=== PATIENT | male | born 1985 ===

== ENCOUNTER 2017-01-08 20:32 | Emergency (ER) | payer MEDICARE, MEDICAID ==
[2017-01-08 20:44] VITALS: BP 126/68
[2017-01-08] MEDS ORDERED: Ibuprofen TAB* 400 MG PO ONE (21:02)
--- NOTE | 2017-01-08 21:38 | RAD ---
HISTORY: Pain after fall, left ankle and left foot COMPARISONS: None VIEWS: 6, Frontal, lateral, and oblique views of the left ankle and of the left foot FINDINGS: BONE DENSITY: Normal. BONES: There is a bone fragment dorsal aspect of the medial cuneiform. There are calcaneal enthesophytes. There is a well-corticated bone fragment along the dorsal aspect of the talonavicular articulation suggestive of an accessory ossicle. JOINTS: There is no arthropathy. ALIGNMENT: There is no dislocation. SOFT TISSUES: Unremarkable. OTHER FINDINGS: None. IMPRESSION: 1. SMALL BONE FRAGMENT ALONG THE DORSAL ASPECT OF THE MEDIAL CUNEIFORM WHICH MAY REFLECT AN AVULSION INJURY GIVEN HISTORY OF TRAUMA AND DORSAL FOOT PAIN. 2. NO ACUTE OSSEOUS INJURY TO THE ANKLE.
--- NOTE | 2017-01-08 21:57 | UC ---
Lower Extremity/Ankle HPI - HPI Summary HPI Summary: patient had a weight drop on the instep of the foot. pain in the arch and lateral side of foot. - History of Current Complaint Chief Complaint: UCLowerExtremity Stated Complaint: LEFT FOOT Time Seen by Provider: 01/08/17 21:14 Hx Obtained From: Patient Onset/Duration: Sudden Onset, Lasting Hours Severity Initially: Moderate Severity Currently: Moderate Aggravating Factor(s): Standing, Ambulation, Nothing Alleviating Factor(s): Rest Able to Bear Weight: Yes - Risk Factors Gout Risk Factors: Negative DVT Risk Factors: Negative - Allergies/Home Medications Allergies/Adverse Reactions: Allergies Allergy/AdvReac Type Severity Reaction Status Date / Time Sulfa Drugs Allergy Unknown Unknown Verified 01/08/17 20:44 Reaction Details Home Medications: Home Medications Gabapentin CAP(*) [Neurontin 100 mg CAP(*)] 100 mg PO TID 01/08/17 [History Confirmed 01/08/17] Pantoprazole Sodium [Protonix] 20 mg PO DAILY 01/08/17 [History Confirmed ] QUEtiapine TAB* [SEROquel TAB*] 50 mg PO BID 01/08/17 [History Confirmed ] metFORMIN* [Glucophage 500 MG TAB *] 500 mg PO BID 01/08/17 [History Confirmed 01/08/17] PMH/Surg Hx/FS Hx/Imm Hx Previously Healthy: Yes - Surgical History Surgical History: Yes Surgery Procedure, Year, and Place: T&A, R carpal tunnel - Family History Known Family History: Negative: Cardiac Disease, Hypertension - Social History Alcohol Use: Occasionally Substance Use Type: None Smoking Status (MU): Light Every Day Tobacco Smoker Type: Cigarettes Amount Used/How Often: 1/3 PPD Length of Time of Smoking/Using Tobacco: 13 YEARS Have You Smoked in the Last Year: Yes Review of Systems Constitutional: Negative Skin: Negative Eyes: Negative ENT: Negative Respiratory: Negative Cardiovascular: Negative Gastrointestinal: Abdominal Pain Genitourinary: Negative Motor: Negative Musculoskeletal: Arthralgia, Decreased ROM, Edema, Myalgia Neurological: Negative Psychological: Negative All Other Systems Reviewed And Are Negative: Yes Physical Exam Triage Information Reviewed: Yes Appearance: Well-Appearing, Well-Nourished, Pain Distress Vital Signs: Initial Vital Signs Temp 98.8 F 01/08/17 20:40 Pulse 82 01/08/17 20:40 Resp 16 01/08/17 20:40 BP 126/68 01/08/17 20:40 Pulse Ox 98 01/08/17 20:40 Vital Signs Reviewed: Yes Eye Exam: Normal Eyes: Positive: Conjunctiva Clear ENT Exam: Normal Dental Exam: Normal Neck exam: Normal Respiratory Exam: Normal Cardiovascular Exam: Normal Abdominal Exam: Normal Bowel Sounds: Positive: Present Musculoskeletal: Positive: ROM Limited @ - in ankle flx, ext and inversion and eversion, swelling over the midfoot Neurological Exam: Normal Neurological: Positive: Alert, Muscle Tone Normal Psychological Exam: Normal Skin Exam: Normal Lower Extremity Course/Dx - Course Course Of Treatment: hx obtained, exam performed ,meds reviewed, cam boot and crutches and oracio applied, referred to Dr clark for follow up. - Differential Dx/Diagnosis Differential Diagnosis/HQI/PQRI: Contusion, Dislocation, Fracture (Closed), Infection, Puncture Wound, Sprain, Strain Provider Diagnoses: contusion. avulsion fracture in left foot Discharge - Discharge Plan Condition: Stable Disposition: HOME Patient Education Materials: Foot Fracture in Adults (ED) Referrals: Alyce Capellan MD [Primary Care Provider] - Additional Instructions: 1. stay non weight bearing until you get cleared from ortho. 2. continue with ibuprofen and tylenol for pain 3. keep foot elevated and use the oracio wrap for swelling reduction
== END 2017-01-08 22:24 | disposition home or self-care (01) ==
LOC: UCCORT 20:32
DX: S92.242A Displaced fracture of medial cuneiform of left foot, initial encounter for closed fracture (principal); W22.8XXA Striking against or struck by other objects, initial encounter; Y93.79 Activity, other specified sports and athletics; Y92.9 Unspecified place or not applicable; Y99.9 Unspecified external cause status; Z72.0 Tobacco use
CPT/HCPCS: 99203; A9270-GY; G0463

== ENCOUNTER 2019-04-16 17:52 | Emergency (ER) | payer MEDICARE, MEDICAID ==
--- OUTSIDE RECORDS SUMMARY | 2019-04-16 19:10 | XMS REPORT | Continuity of Care Document ---
:1985 External Reference #:[id number] Author Name Geeta Mercer NP Address [address], [address] [place] [address] Care Team Providers Name Role Phone Alyce Capellan MD - Family Medicine Care Team Information Earth Moving Machine Operator [facility], Endocrinology - Care Team Information [employer] Moving [employer] Operator [phone] Endocrinology, Diabetes & Metabolism Jese Larryph - Pain Medicine Care Team Information [employer] Moving Machine Operator [phone] Heartburn [facility] Care Team Information [employer] Moving [employer] Operator Health Problems Active Problems Provider Date Multiple joint pain Alyce Capellan MD Onset: 12/04/2011 Backache Alyce Capellan MD Onset: 12/04/2011 Neck pain Alyce Capellan MD Onset: 12/04/2011 Musculoskeletal disorder of the neck Alyce Capellan MD Onset: 2011 Social History Type Date Description Comments Sex Unknown Tobacco Use Reviewed: 09/06/16 currently smokes 1/2 Pack Daily ETOH Use Denies alcohol use Tobacco Use Reviewed: 09/26/18 Light tobacco smoker (10 or fewer cigarettes/day) Smoking Status Reviewed: 02/13/19 Light tobacco smoker (10 or fewer cigarettes/day) Allergies, Adverse Reactions, Alerts Active Allergies Reaction Severity Comments Date Sulfa Drugs 12/04/2011 Medications Active Medications SIG Qnty Indications Ordering Date Provider Albuterol Sulfate HFA Inhale Two Puffs 18units Alyce Capellan 2018 By Mouth Every 4 M., 108(90Base) mcg/Act Hours as Needed Aerosol Metformin HCL ER take two tablets 120tabs Marilia Digant 04/03/2019 500mg by mouth twice a M., Tablets ER 24HR day Gabapentin take 1 tablet by 90tabs Marilia Digant 04/03/2019 600mg mouth three M., Tablets times a day Metaxalone take 1 tablet by 90tabs Marilia, Digant 03/23/2019 800mg mouth three M., Tablets times daily as needed Onetouch Finepoint use as directed 300units Marilia Digant 12/17/2018 Lancets e11.65 four M., Misc times daily Onetouch Ultra 2 use as directed 1units Marilia Digant 12/17/2018 four times daily M.MD w/Device Kit Onetouch Ultra Blue use as directed 300units E11.8 Keron Digant 2018 four times daily M.MD Strips BD Uf Silva Pen Needle Use as Directed 100units Marilia Digeve 2018 [id number] With Insulin M.MD Lisinopril 1 by mouth every 90tabs Marilia Digant 09/26/2018 10mg Tablets day M., Pantoprazole Sodium take one tablet 30tabs Marilia Digant 05/11/2018 by mouth every M., 40mg Tablets DR day Basaglar Kwikpen inject 60 units 45units Marilia Digant 03/26/2018 nightly. MMD Prasad 100Unit/ML Solution Pen-Inject Novolog Flexpen use as directed 30units Marilia Digant 03/26/2018 as per sliding M.MD 100Unit/ML Solution scale maximum Pen-Inject daily dose = 30 Alcohol Prep use as directed 300units Marilia Digant 03/07/2018 70% Pads to test blood M.MD sugar twice a day and prn. Simvastatin take one tablet 30tabs E78.5 Sydneeavasharri Digant 03/05/2018 40mg by mouth every M., Tablets day Quetiapine Fumarate take one tablet 60tabs F33.0 Sydneeavasharri Digant 2017 by mouth twice a M., 50mg Tablets day Sertraline HCL take one tablet 30tabs Nanavasharri, Digant 03/05/2018 100mg by mouth every M., Tablets day History Medications Mupirocin apply to affected 22gm Alyce Capellan 02/13/2019 - 2% area twice a day MD Rosa 04/03/2019 Ointment Ammonium Lactate apply topically 1 280gm Alyce Capellan 02/13/2019 - to 2 times a day to MD Rosa 04/03/2019 12% Cream the affected area(s) for 2 weeks Immunizations CPT Code Status Date Vaccine Lot # [id number] Given 06/27/2018 Influenza Virus [id number] Vaccine,Quadrivalent,Split,Preserv Free, 0.5mL,[place] [id number] Given 10/17/2015 Tdap (Adacel) Ages 7 And Above Only [id number] Refused 01/07/2019 Pneumococcal 23 Immunization Adult Or Immunosuppressed Patient [id number] Refused 01/14/2017 Flu Vaccine NOS [id number] Refused 11/17/2015 Influenza Vac, Quadrivalent, Split, 0.5mL Dosage, [place] Use [id number] Refused 10/20/2013 Afluria Or Fluvirin Flu Vac Intramuscular Vital Signs Date Vital Result Comment 04/03/2019 2:40pm Body Temperature 97.5 F Weight 276.00 lb Heart Rate 104 /min Respiratory Rate 18 /min Height 67 inches 5'7" O2 % BldC Oximetry 94 % BMI (Body Mass Index) 43.2 kg/m2 02/13/2019 3:02pm Body Temperature 97.2 F Weight 276.00 lb Heart Rate 70 /min BP Systolic 126 mmHg BP Diastolic 70 mmHg Respiratory Rate 16 /min Height 67 inches 5'7" O2 % BldC Oximetry 98 % BMI (Body Mass Index) 43.2 kg/m2 Results Test Date Facility Test Result H/L Range Note CBC with Auto Diff-fcmg 01/27/2019 [facility] WBC 10.0 K/uL 4.1-11.0 1 RBC 5.02 M/uL 4.60-6.10 Hemoglobin 15.6 gm/dL 13.5-18.0 Hematocrit 45.8 % 41.0-53.0 MCV 91.3 fL 80.0-97.0 MCH 31.2 pg 27.0-32.0 MCHC 34.2 g/dL 32.0-36.0 RDW 13.4 % 11.5-14.5 PLT Count 228 K/ul 140-400 MPV 8.6 FL 7.1-10.7 Neutrophil 54.5 % 35.0-75.0 Lymphocyte 33.4 % 16.0-52.0 Monocyte 6.1 % 2.0-10.0 Eosinophil 5.1 % High 0.0-5.0 Basophil 0.9 % 0.0-4.0 Abs Neutrophils 5.4 K/uL 2.1-8.0 Abs Lymphocytes 3.3 K/uL 0.8-5.5 Abs Monocytes 0.6 K/uL 0.1-1.0 Abs Eosinophils 0.5 K/uL 0.0-0.5 Abs Basophils 0.1 K/uL 0.0-0.3 Comprehensive Met Panel-[facility] 01/27/2019 [facility] Sodium 137 mmol/L 135- 146 2 Potassium 3.9 mmol/L 3.5-5.2 Chloride# 101 mmol/L 97-110 3 Carbon Dioxide 21 mmol/L Low 24-34 Calcium 9.7 mg/dL 8.5-10.5 4 Glucose 156 mg/dL High 70-105 BUN 16 mg/dL 6-26 Creatinine 0.9 mg/dL 0.5-1.4 Total Protein 7.1 g/dL 6.0-8.0 Albumin 4.7 g/dL 3.6-4.9 Globulin 2.4 g/dL 2.0-3.5 A/G Ratio 2.0 Ratio 1.0-2.2 Total Bilirubin 0.4 mg/dL 0.1-1.3 Alkaline Phosphatase 88 U/L 24-140 Alt 50 U/L High 3-42 Ast 28 U/L 8-42 Anion Gap 15 mmol/L 5-15 5 Female Egfr 86 >60 6 Male Egfr 111 >60 7 Lipid 01/27/2019 [facility] Cholesterol 180 mg/dL 50-199 Triglycerides 488 mg/dL High 30-200 HDL 31 mg/dL 29-71 8 Chol/ HDL Ratio 5.8 ratio 4.0-6.7 Laboratory test 01/27/2019 [facility] TSH 2.23 uIU/mL 0.35-4.94 finding Hemoglobin A1c 01/27/2019 [facility] Hemoglobin A1c 8.5 % High 4.1-5.9 Estimated Average Glucose Calc 197 mg/dL High 71-140 Laboratory test finding 01/27/2019 [facility] Vitamin B12 288 pg/mL 180- 914 Vitamin D 25 Hydroxy 22 ng/mL Low 30-100 9 Laboratory test finding 01/27/2019 [facility] LDL 89 mg/dL 20-99 10 1 This sample is drawn by:wilman 2 Updated reference range on new analyzer 3 Updated reference range on new analyzer 4 Updated reference range 11-26-2018 5 Updated Reference Range 6 Concerning GFR Guidelines for Americans: Normal function or mild renal disease, if clinically at risk: >/= 60 mL/min Moderately decreased: 30-59 Severely decreased: 15-29 Renal failure: <15 There is reduced accuracy above 60ml/min/1.73 m squared, but the numeric value may be clinically useful in the near 60 range 7 Concerning GFR Guidelines: Normal function or mild renal disease, if clinically at risk: >/= 60 mL/min Moderately decreased: 30-59 Severely decreased: 15-29 Renal failure: <15 There is reduced accuracy above 60ml/min/1.73 m squared, but the numeric value may be clinically useful in the near 60 range Glomerular Filtration Rate (GFR) is estimated based on the CKD-EPI equation, which assumes a steady state for creatinine as recommended by the National Kidney Disease Education Program in conjunction with the National Institutes of Health and the National Kidney Foundation. Clinical conditions in which it may be necessary to measure GFR by using clearance methods include extremes of age and body size, severe malnutrition or obesity, diseases of skeletal muscle, paraplegia or quadriplegia, vegetarian diet, rapidly changing kidney function, and calculation of the dose of potentially toxic drugs that are excreted by the kidneys. 8 Per NCEP ATP III Guidelines: Results lower than 40 mg/dL are suggestive of increased risk for coronary artery disease. Results > or = to 60 mg/dL are considered a negative risk factor. 9 Clinical Guidelines for recommended serum 25(OH)Vitamin D Deficient at less than 20 ng/mL Insufficient at 20 to <30 ng/mL Sufficient at 30-100 ng/mL Toxicity at greater than 100 ng/mL 10 Per NCEP ATP III Guidelines: Normal population: <130 Patients with medical conditions: CHD/DM Optimal range: <100 Borderline high: 130-159 High: 160-189 Very high: >189 Procedures Date Code Description Status 04/03/2019 95327 Brief Emotional/Behav Assessment W/ Scoring Doc Per Completed [facility] Medical Devices Description No Information Available Encounters Type Date Location Provider Dx Diagnosis Office Visit 02/13/2019 [facility] Alyce Capellan E11.40 Type 2 diabetes 3:15p Ruby Lee MD mellitus with diabetic neuropathy, unsp I10 Essential (primary) hypertension E78.5 Hyperlipidemia, unspecified F33.0 Major depressive disorder, recurrent, mild F41.1 Generalized anxiety disorder G47.00 Insomnia, unspecified K21.9 Gastro-esophageal reflux disease without esophagitis M54.9 Dorsalgia, unspecified M54.2 Cervicalgia D35.2 Benign neoplasm of pituitary gland F17.218 Nicotine dependence, cigarettes, w oth disorders E55.9 Vitamin D deficiency, unspecified E66.01 Morbid (severe) obesity due to excess calories Z68.41 Body mass index (BMI) 40.0-44.9, adult Office Visit 01/07/2019 [facility] Cheryl, E11.40 Type 2 diabetes 2:00p YAIMA Olivo mellitus with diabetic neuropathy, unsp I10 Essential (primary) hypertension E78.5 Hyperlipidemia, unspecified F33.0 Major depressive disorder, recurrent, mild F41.1 Generalized anxiety disorder G47.00 Insomnia, unspecified K21.9 Gastro-esophageal reflux disease without esophagitis M54.9 Dorsalgia, unspecified E66.01 Morbid (severe) obesity due to excess calories Z68.41 Body mass index (BMI) 40.0-44.9, adult Assessments Date Code Description Provider 04/03/2019 E66.01 Morbid (severe) obesity due to excess Depaulis Fiumano, calories Geeta, VICE PRESIDENT OF INSTRUCTION 04/03/2019 E11.40 Type 2 diabetes mellitus with diabetic Depaulis Fiumano, neuropathy, unspecifi Geeta, VICE PRESIDENT [employer]STRUCTION 04/03/2019 I10 Essential (primary) hypertension Depaulis Fiumano, Geeta, VICE PRESIDENT [employer]STRUCTION 04/03/2019 E78.5 Hyperlipidemia, unspecified Depaulis Fiumano, Geeta, VICE PRESIDENT [employer]STRUCTION 04/03/2019 F33.0 Major depressive disorder, recurrent, Depaulis Fiumano, mild Geeta, VICE PRESIDENT OF INSTRUCTION 04/03/2019 F41.1 Generalized anxiety disorder Depaulis Fiumano, Geeta, VICE PRESIDENT OF INSTRUCTION 04/03/2019 G47.00 Insomnia, unspecified Depaulis Fiumano, Geeta, BULMARO 04/03/2019 Z68.41 Body mass index (BMI) 40.0-44.9, adult Geeta Mercer, BULMARO 02/13/2019 E11.40 Type 2 diabetes mellitus with diabetic Alyce Capellan MD neuropathy, unspecifi 02/13/2019 I10 Essential (primary) hypertension Alyce Capellan MD 02/13/2019 E78.5 Hyperlipidemia, unspecified Alyce Capellan MD 02/13/2019 F33.0 Major depressive disorder, recurrent, Alyce Capellan MD mild 02/13/2019 F41.1 Generalized anxiety disorder Alyce Capellan MD 02/13/2019 G47.00 Insomnia, unspecified Alyce Capellan MD 02/13/2019 K21.9 Gastro-esophageal reflux disease Alyce Capellan MD without esophagitis 02/13/2019 M54.9 Dorsalgia, unspecified Alyce Capellan MD 02/13/2019 M54.2 Cervicalgia Alyce Capellan MD 02/13/2019 D35.2 Benign neoplasm of pituitary gland Alyce Capellan MD 02/13/2019 F17.218 Nicotine dependence, cigarettes, with Alyce Capellan MD other nicotine-induced 02/13/2019 E55.9 Vitamin D deficiency, unspecified Alyce Capellan MD 02/13/2019 E66.01 Morbid (severe) obesity due to excess Alyce Capellan MD calories 02/13/2019 Z68.41 Body mass index (BMI) 40.0-44.9, adult Alyce Capellan MD 01/27/2019 E11.40 Type 2 diabetes mellitus with diabetic Alyce Capellan MD neuropathy, unspecified 01/27/2019 E11.40 Type 2 diabetes mellitus with diabetic Loc V1 Nurse Blood neuropathy, unsp 01/27/2019 E55.9 Vitamin D deficiency, unspecified Alyce Capellan MD 01/27/2019 E55.9 Vitamin D deficiency, unspecified Loc V1 Nurse Blood 01/27/2019 E78.5 Hyperlipidemia, unspecified Alyce Capellan MD 01/27/2019 E78.5 Hyperlipidemia, unspecified Loc V1 Nurse Blood 01/27/2019 E78.1 Pure hyperglyceridemia [facility] 01/27/2019 E11.40 Type 2 diabetes mellitus with diabetic [facility] neuropathy, unsp 01/27/2019 E55.9 Vitamin D deficiency, unspecified [facility] 01/27/2019 E78.5 Hyperlipidemia, unspecified [facility] 01/07/2019 E11.40 Type 2 diabetes mellitus with diabetic Farchione, Tianna , PA neuropathy, unspecifi 01/07/2019 I10 Essential (primary) hypertension Farchione, Tianna, PA 01/07/2019 E78.5 Hyperlipidemia, unspecified Farchione, Tianna, PA 01/07/2019 F33.0 Major depressive disorder, recurrent, Farchione, Tianna, PA mild 01/07/2019 F41.1 Generalized anxiety disorder Farchione, Tianna, PA 01/07/2019 G47.00 Insomnia, unspecified Farchione, Tianna, PA 01/07/2019 K21.9 Gastro-esophageal reflux disease Farchione, Tianna, PA without esophagitis 01/07/2019 M54.9 Dorsalgia, unspecified Farchione, Tianna, PA 01/07/2019 E66.01 Morbid (severe) obesity due to excess Farchione, Tianna , PA calories 01/07/2019 Z68.41 Body mass index (BMI) 40.0-44.9, adult Cheryl, Tianna , PA Plan of Treatment Future Appointment(s):05/08/2019 3:00 pm - Geeta Mercer NP at [facility] [place][Note 2]04/03/2019 - Geeta Mercer NPE66.01 Morbid (severe) obesity due to excess caloriesComments:5A's for Obesity Counseling1. ASSESS: Patient presents with a BMI of 43.2, would like to discuss weight loss options.2. ADVISE: Discussed fdc complications of obesity in particular increased riskfor worsening and uncontrolled diabetes and heart disease as well as the many health benefits that come with a healthy BMI.3. AGREE: Goal is 1 pound or better per week weight loss. The patient understands and agrees to the plan outlined today.4. ASSIST: Reduce caloric intake, reduce proportion of carbohydrates in diet, establish daily exercise pattern, keep food log.5. ARRANGE: Follow up scheduled in ___one month_ to assess and adjust treatment plan if needed.Time spent counseling the patient on obesity is 15 minutes. Obesity Screening Completed (G0447)E11.40 Type 2 diabetes mellitus with diabetic neuropathy, unspecifiComments:improving and discussed diet changes to better improve. has not been taking metformin and changed to extended release. will monitor. having peripheral neuropathy adn increase gabapentin. needs to go to podiatry dn will refer. needs to have better supporting shoes diabetic socks.Referral:Jose Reddy, [id number] Essential (primary) hypertensionComments:BP controlled with meds. Continue to monitor BP. Low salt diet. No changes made.E78.5 Hyperlipidemia, unspecifiedComments:on meds and diet and exercise encouraged. Will check levels. 5A's for Cardiovascular Disease Counseling 1. ASSESS: Patient has E78.5 Hyperlipidemia, unspecified2. ADVISE: Discussed the importance of regular exercise, DASH diet, stress reduction, avoidance of NSAIDS and low cholesterol diet. Counseled on statin therapy. 3. AGREE: Patient agrees to implement the modifications discussed today.4. ASSIST: Patient was offered nutritional therapy and provided information on the risks of cardiovascular disease.5. ARRANGE: We will follow-up at next visit to see how the patient has implemented the above changes.Time spent counseling the patient on CVD is 8 minutes 10 minutes 15 minutes CVD Screening Completed (G0446)F33.0 Major depressive disorder, recurrent, mildComments:*controlled with meds. NO changes made. Encouraged counseling. Pt counseled not to stop meds and to take med consistently daily.F41.1 Generalized anxiety disorderComments:*controlled with meds. NO changes made. Encouraged counseling. Pt counseled not to stop meds and to take med consistently daily.G47.00 Insomnia, unspecifiedComments:continue with seroquel.Z68.41 Body mass index (BMI) 40.0-44.9, adultComments:diet and exercise and weight loss encouraged.AllNew Medication:Albuterol Sulfate HFA 108( 90 Base) mcg/Act - Inhale Two Puffs By Mouth Every 4 Hours as NeededMetformin HCL ER 500 mg - take two tablets by mouth twice a dayGabapentin 600 mg - take 1 tablet by mouth three times a dayFollow up:1 month follow up Functional Status Description No Information Available Mental Status Description No Information Available Referrals Refer to Reason for Referral Status Appt Date Jose eRddy Siddharth [address] [id number] [phone] Mony Ansari PA sleep study evaluation Scheduled 11/12/2018 [id number] [id number] [phone]
--- OUTSIDE RECORDS SUMMARY | 2019-04-16 19:11 | XMS REPORT | Continuity of Care Document ---
:1985 External Reference #:[id number] Author Name Alyce Capellan MD Address [address] [address] Care Team Providers Name Role Phone Alyce Capellan MD Primary Care Physician Unavailable Payers Date Identification Numbers Payment Provider Subscriber Effective: 2013 Policy Number: [id number] Medicare Part B Vadim Bui Group Name: [facility] [address] PayID: [id number] [place] [address] Policy Number: [id number] Medicaid Vadim Bui PayID: [id number] [address] [place] [address] Onset: 2008 Policy Number: [id number] Hari Beth Vadim Bui PayID: [id number] [address] [address] [place] [address] Problems Active Problems Provider Date Multiple joint pain Alyce Capellan MD Onset: 12/04/2011 Backache Alyce Capellan MD Onset: 12/04/2011 Neck pain Alyce aCpellan MD Onset: 12/04/2011 Musculoskeletal disorder of the neck Alyce Capellan MD Onset: 2011 Family History Date Family Member(s) Observation Comments Father Hypercholesterolemia Father COPD Father Arthritis Mother GERD Social History Type Date Description Comments Sex [...] Medications SIG Qnty Indications Ordering Date Provider Mupirocin apply to affected 22gm Alyce Capellan 02/13/2019 2% Ointment area twice a day MMD Prasad Ammonium Lactate apply topically 1 280gm Marilia Digeve 02/13/2019 12% to 2 times a day MMD Prasad Cream to the affected area(s) for 2 weeks Onetouch Finepoint use as directed 300units Marilia Digant 12/17/2018 Lancets e11.65 four times M., Misc daily Onetouch Ultra 2 use as directed 1units Marilia Digant 12/17/2018 four times daily M.MD w/Device Kit Onetouch Ultra Blue use as directed 300units E11.8 Keronsharri Digeve 2018 four times daily M.MD Strips BD Uf Silva Pen Use as Directed 100units Sydneejuan Juanieve 11/02/2018 Needle [id number] With Insulin MMD Prasad Lisinopril 1 by mouth every 90tabs Nanavasharri Digant 09/26/2018 10mg day M.MD Tablets Pantoprazole Sodium Take One Tablet 30tabs Sydneejuan Digant 05/11/2018 By Mouth Every M., 40mg Tablets DR Day Ventolin HFA Inhale Two Puffs 18units Sydneejuan Digant 05/09/2018 By Mouth Every 4 M., 108(90Base) mcg/Act Hours as Needed Aerosol Basaglar Kwikpen 65 units nightly 45ml Nanjuan Digant 03/26/2018 MMD Prasad 100Unit/ML Solution Pen-Inject Novolog Flexpen Use as Directed 30units Sydneejuan Digant 03/26/2018 as Per Sliding M.MD 100Unit/ML Solution Scale Maximum Pen-Inject Daily Dose = 30 Alcohol Prep use as directed 300units Sydneeavasharri Digant 03/07/2018 70% Pads to test blood MMD Prasad sugar twice a day and prn. Sertraline HCL take one tablet 30tabs Nanavati Digant 03/05/2018 100mg by mouth every M., Tablets day Quetiapine Fumarate Take One Tablet 60tabs F33.0 Nanavati, Digant 2017 By Mouth Twice A M.MD 50mg Tablets Day Simvastatin take one tablet 30tabs E78.5 Sydneeavati, Digant 03/05/2018 40mg by mouth every M., Tablets day Metformin HCL take one tablet 180tabs Nanavati, Digant 03/05/2018 1000mg by mouth twice a MMD Prasad Tablets day Gabapentin take one capsule 90caps Marilia, Juaniant 01/14/2017 300mg by mouth three M.MD Capsules times a day History Medications Metaxalone take 1 tablet 90tabs Marilia, 09/26/2018 - 800mg Tablets by mouth three Alyce Lee MD 01/12/2019 times daily as needed Hydrochlorothiazide Take One Tablet 30tabs Marilia, 09/24/2018 - 25mg By Mouth Every Alyce Lee MD 09/26/2018 Tablets Day Methylprednisolone use as directed 21unmadyson Capellan, 08/21/2018 - 4mg TBPK Alyce Lee MD 09/26/2018 Triamcinolone Acetonide apply sparingly 45gm Marilia, 08/21/2018 - 0.025% to affected Alyce Lee MD 09/26/2018 Cream area twice a day for twos only Lisinopril 1 by mouth 90tabs Marilia, 07/08/2018 - 5mg Tablets every day Alyce Lee MD 09/26/2018 Pantoprazole Sodium Take One Tablet 30tabs K21.0 Marilia, 05/11/2018 - 40mg By Mouth Every Alyce eLe MD 07/08/[address] Day Cephalexin 1 by mouth 30caps Marilia, 05/09/2018 - 500mg Capsules three times a Alyce Lee MD 07/08/2018 day Pen [place] use as directed 100unmadyson Capellan, 04/23/2018 - 32G X 4 mm Misc with insulin Alyce Lee MD 12/17/2018 Potassium Chloride [place] 1 by mouth 90tachristian Capellan, 03/05/2018 - ER every day Alyce Lee MD 07/08/2018 20Meq Tablets ER Hydrochlorothiazide Take One Tablet 30tabs Marilia, 03/05/2018 - 25mg By Mouth Every Alyce Lee MD 07/08/2018 Tablets Day Lantus Solostar inject 35 units 45ml Marilia, 03/04/2018 - 100Unit/ML under the skin Alyce Lee MD 03/26/2018 Solution Pen-Inject at bedtime Amoxicillin one cap by 30omnica Capellan, 11/22/2017 - 500mg Capsules mouth three Alyce Lee MD 03/04/2018 times a day for ten days Potassium Chloride ER Take One Tablet 30tabs Marilia, 06/27/2017 - 10Meq By Mouth Every Alyce Lee MD 03/04/2018 Tablets ER Day Sertraline HCL Take One Tablet 30tabs Marilia, 03/18/2017 - 100mg Tablets By Mouth Every Alyce Lee MD 03/04/2018 Day Gabapentin 1 by mouth 90caps Marilia, 11/12/2016 - 100mg Capsules three times a Alyce Lee MD 01/14/2017 day Klor-Con 10 Take One Tablet 30tabs Marilia, 10/18/2016 - 10Meq Tablets ER By Mouth Every Alyce Lee MD 06/27/2017 Day Quetiapine Fumarate Take One Tablet 60tabs F33.0 Marilia, 10/12/2016 - 50mg By Mouth Twice Alyce Lee MD 03/04/2018 Tablets A Day Quetiapine Fumarate take one tablet 60tabs F33.0 Marilia, 09/06/2016 - 25mg by mouth at Alyce Lee MD 10/12/2016 Tablets morning and 1 tab at bedtime Pantoprazole Sodium Take One Tablet 30tabs K21.0 Marilia, 01/12/2016 - 40mg By Mouth Every Alyce Lee MD 03/04/[address] Day Metformin HCL take one tablet 180tabs E11.8 Marilia, 11/17/2015 - 500mg Tablets by mouth twice Alyce Lee MD 03/04/2018 a day Vitamin D3 1 by mouth 30capleanne E55.9 Marilia, 11/17/2015 - 2000Unit Capsules every day Alyce Lee MD 08/12/2017 Alcohol Prep use as directed 1Box Marilia, 10/17/2015 - 70% Pads to test blood Alyce Lee MD 09/26/2018 sugar twice a day and prn. dx 250.00 Freestyle Lancets as directed 100units Marilia, 10/17/[facility] or Alcye Lee MD 12/17/2018 what insurance covers Freestyle Lite Test use as directed 300units E11.8 Marilia, 10/17/2015 - Strips four times per Alyce Lee MD 12/17/2018 day Freestyle Lite Blood ck bs 1-2 x 1units Marilia, 10/17/2015 - Glucose Monitoring System every day Alyce Lee MD 12/17/2018 Device Azithromycin take 2 tabs day 6tabs J01.90 Marilia, 08/26/2015 - 250mg Tablets one then 1 tab Alyce Lee MD 10/17/2015 a day for 4 days Fluticasone Propionate 1 spray each 1units J01.90 Marilia, 08/26/2015 - nostril every Alyce Lee MD 10/17/2015 50mcg/Act Suspension 12 hours Ventolin HFA Inhale Two 18units R06.2 Marilia, 08/26/2015 - 108(90Base) Puffs By Mouth Alyce Lee MD 03/04/2018 mcg/Act Aerosol Every 4 Hours as Needed Tramadol HCL ER one by mouth 30tabs M54.9 Marilia, 07/01/2014 - 300mg Tablets every day Alyce Lee MD 06/14/2016 ER 24HR Lyrica one po tid 90caps Marilia, 11/25/2013 - 100mg Capsules maxium daily Alyce Lee MD 11/25/2013 dose 3 Lyrica 1 by mouth 90caps Marilia, 11/25/2013 - 50mg Capsules three times a Alyce Lee MD 06/14/2016 day Omeprazole take one 30caps Marilia, 08/06/2012 - 20mg Capsules DR capsule by Alyce Lee MD 10/17/2015 mouth every day Klor-Con 10 one tab by 30tabs Z79.89 Marilia, 12/04/2011 - 10Meq Tablets ER mouth every day 9 Alyce Lee MD 06/14/2016 Tramadol HCL ER one po qd 30tabs Marilia, 12/04/2011 - 300mg Tablets Alyce Lee MD 11/25/2013 ER 24HR Vitamin D Take 1 Capsule 12caps E55.9 Marilia, 12/04/2011 - 67234Qffi Capsules By Mouth Once A Alyce Lee MD 11/17/2015 Month Hydrochlorothiazide Take One Tablet 30tabs Z79.89 Marilia, 12/04/2011 - 25mg By Mouth Every 9 Alyce Lee MD 03/04/2018 Tablets Day Lyrica one po tid 90caps Bayron, 11/15/2011 - 100mg Capsules maxium daily BULMARO Moore 11/25/2013 dose 3 Simvastatin Take One Tablet 30tabs E78.5 Marilia, 11/15/2011 - 40mg Tablets By Mouth Every Alyce Lee MD 03/04/2018 Day Immunizations CPT Code Status Date Vaccine Lot # 82056 Given 06/27/2018 Influenza Virus [id number] Vaccine,Quadrivalent,Split,Preserv Free, 0.5mL,[place] [id number] Given 10/17/2015 Tdap (Adacel) Ages 7 And Above Only [id number] Refused 01/07/2019 Pneumococcal 23 Immunization Adult Or Immunosuppressed Patient [id number] Refused 01/14/2017 Flu Vaccine NOS 54751 Refused 11/17/2015 Influenza Vac, Quadrivalent, Split, 0.5mL [place]os[place], [place] Use [id number] Refused 10/20/2013 Afluria Or Fluvirin Flu Vac Intramuscular Vital Signs Date Vital Result Comment 02/13/2019 3:02pm Body Temperature 97.2 F Weight 276.00 lb Heart Rate 70 /min BP Systolic 126 mmHg BP Diastolic 70 mmHg Respiratory Rate 16 /min Height 67 inches 5'7" O2 % BldC Oximetry 98 % BMI (Body Mass Index) 43.2 kg/m2 01/07/2019 2:05pm Body Temperature 97.8 F Weight 279.00 lb Heart Rate 92 /min BP Systolic 127 mmHg BP Diastolic 84 mmHg Respiratory Rate 18 /min Height 67 inches 5'7" O2 % BldC Oximetry 97 % BMI (Body Mass Index) 43.7 kg/m2 09/26/2018 3:04pm Body Temperature 98.1 F Weight 281.00 lb Heart Rate 104 /min BP Systolic 156 mmHg BP Diastolic 98 mmHg Respiratory Rate 18 /min Height 67 inches 5'7" O2 % BldC Oximetry 97 % BMI (Body Mass Index) 44.0 kg/m2 08/21/2018 1:28pm Body Temperature 98.7 F Weight 281.00 lb Heart Rate 101 /min BP Systolic 142 mmHg BP Diastolic 82 mmHg BP Systolic Recheck 132 mmHg BP Diastolic Recheck 78 mmHg Respiratory Rate 16 /min Height 67 inches 5'7" BMI (Body Mass Index) 44.0 kg/m2 07/08/2018 11:12am Body Temperature 96.3 F Weight 280.00 lb Heart Rate 82 /min BP Systolic 126 mmHg BP Diastolic 72 mmHg Respiratory Rate 16 /min Height 67 inches 5'7" O2 % BldC Oximetry 98 % BMI (Body Mass Index) 43.8 kg/m2 05/09/2018 10:02am Body Temperature 98.6 F Weight 272.00 lb Heart Rate 85 /min BP Systolic 128 mmHg BP Diastolic 86 mmHg Respiratory Rate 18 /min Height 67 inches 5'7" O2 % BldC Oximetry 96 % BMI (Body Mass Index) 42.6 kg/m2 03/26/2018 4:48pm Body Temperature 98.6 F Weight 265.00 lb Heart Rate 89 /min BP Systolic 124 mmHg BP Diastolic 80 mmHg 03/13/2018 1:37pm Body Temperature 96.3 F Weight 264.00 lb Heart Rate 92 /min BP Systolic 122 mmHg BP Diastolic 82 mmHg Respiratory Rate 18 /min Height 66 inches 5'6" O2 % BldC Oximetry 96 % BMI (Body Mass Index) 42.6 kg/m2 03/07/2018 10:51am Body Temperature 97.9 F Weight 257.00 lb Heart Rate 107 /min BP Systolic 140 mmHg BP Diastolic 86 mmHg Respiratory Rate 18 /min Height 66 inches 5'6" O2 % BldC Oximetry 99 % BMI (Body Mass Index) 41.5 kg/m2 11/22/2017 10:03am Body Temperature 98.1 F Weight 270.00 lb Heart Rate 101 /min BP Systolic 145 mmHg BP Diastolic 85 mmHg Respiratory Rate 18 /min Height 66 inches 5'6" O2 % BldC Oximetry 95 % BMI (Body Mass Index) 43.6 kg/m2 09/20/2017 2:40pm Body Temperature 98.2 F Weight 249.00 lb Heart Rate 96 /min BP Systolic 136 mmHg BP Diastolic 88 mmHg Respiratory Rate 18 /min Height 66 inches 5'6" O2 % BldC Oximetry 95 % BMI (Body Mass Index) 40.2 kg/m2 08/12/2017 1:16pm Body Temperature 97.5 F Weight 238.00 lb Heart Rate 89 /min BP Systolic 136 mmHg BP Diastolic 80 mmHg Respiratory Rate 16 /min Height 66 inches 5'6" O2 % BldC Oximetry 98 % BMI (Body Mass Index) 38.4 kg/m2 07/01/2017 10:09am Body Temperature 97.7 F Weight 221.00 lb Heart Rate 88 /min BP Systolic 134 mmHg BP Diastolic 80 mmHg Respiratory Rate 18 /min Height 66 inches 5'6" O2 % BldC Oximetry 97 % BMI (Body Mass Index) 35.7 kg/m2 03/18/2017 2:44pm Body Temperature 97.3 F Weight 196.00 lb Heart Rate 82 /min BP Systolic 126 mmHg BP Diastolic 68 mmHg Respiratory Rate 16 /min Height 66 inches 5'6" O2 % BldC Oximetry 98 % BMI (Body Mass Index) 31.6 kg/m2 01/14/2017 10:03am Body Temperature 98.2 F Heart Rate 83 /min BP Systolic 124 mmHg BP Diastolic 62 mmHg Respiratory Rate 16 /min Height 66 inches 5'6" O2 % BldC Oximetry 98 % 11/12/2016 4:00pm Body Temperature 98.1 F Weight 197.00 lb Heart Rate 94 /min BP Systolic 137 mmHg BP Diastolic 69 mmHg Respiratory Rate 18 /min Height 66 inches 5'6" O2 % BldC Oximetry 98 % BMI (Body Mass Index) 31.8 kg/m2 10/12/2016 1:12pm Body Temperature 98.6 F Weight 201.00 lb Heart Rate 107 /min BP Systolic 126 mmHg BP Diastolic 79 mmHg Respiratory Rate 16 /min Height 66 inches 5'6" O2 % BldC Oximetry 98 % BMI (Body Mass Index) 32.4 kg/m2 09/14/2016 1:14pm Body Temperature 99.3 F Weight 199.00 lb Heart Rate 78 /min BP Systolic 116 mmHg BP Diastolic 52 mmHg Respiratory Rate 18 /min Height 66 inches 5'6" O2 % BldC Oximetry 99 % BMI (Body Mass Index) 32.1 kg/m2 09/06/2016 1:41pm Body Temperature 97.4 F Weight 198.00 lb Heart Rate 83 /min BP Systolic 125 mmHg BP Diastolic 79 mmHg Respiratory Rate 18 /min Height 66 inches 5'6" O2 % BldC Oximetry 99 % BMI (Body Mass Index) 32.0 kg/m2 06/14/2016 3:18pm Body Temperature 98.1 F Weight 226.00 lb Heart Rate 87 /min BP Systolic 142 mmHg BP Diastolic 90 mmHg Respiratory Rate 18 /min Height 66 inches 5'6" O2 % BldC Oximetry 99 % BMI (Body Mass Index) 36.5 kg/m2 01/12/2016 11:33am Body Temperature 99.0 F Weight 256.00 lb Heart Rate 89 /min BP Systolic 143 mmHg BP Diastolic 93 mmHg Respiratory Rate 18 /min Height 66 inches 5'6" O2 % BldC Oximetry 97 % BMI (Body Mass Index) 41.3 kg/m2 11/17/2015 11:16am Body Temperature 97.6 F Weight 262.00 lb Heart Rate 88 /min BP Systolic 138 mmHg BP Diastolic 78 mmHg Respiratory Rate 18 /min Height 66 inches 5'6" O2 % BldC Oximetry 97 % BMI (Body Mass Index) 42.3 kg/m2 10/17/2015 1:59pm Body Temperature 98.3 F Weight 264.00 lb Heart Rate 73 /min BP Systolic 122 mmHg BP Diastolic 76 mmHg Respiratory Rate 16 /min Height 66 inches 5'6" O2 % BldC Oximetry 100 % BMI (Body Mass Index) 42.6 kg/m2 08/26/2015 9:50am Body Temperature 98.1 F Weight 271.00 lb Heart Rate 101 /min BP Systolic 134 mmHg BP Diastolic 84 mmHg Respiratory Rate 16 /min Height 66 inches 5'6" O2 % BldC Oximetry 96 % BMI (Body Mass Index) 43.7 kg/m2 04/27/2015 11:28am Body Temperature 98.1 F Weight 263.00 lb Heart Rate 97 /min BP Systolic 141 mmHg BP Diastolic 92 mmHg Respiratory Rate 18 /min Height 66 inches 5'6" O2 % BldC Oximetry 97 % BMI (Body Mass Index) 42.4 kg/m2 09/03/2014 1:56pm Body Temperature 98.2 F Weight 261.00 lb Heart Rate 76 /min BP Systolic 120 mmHg BP Diastolic 80 mmHg Respiratory Rate 16 /min Height 66 inches 5'6" O2 % BldC Oximetry 98 % BMI (Body Mass Index) 42.1 kg/m2 07/01/2014 10:17am Body Temperature 97.9 F Weight 263.00 lb Heart Rate 72 /min BP Systolic 120 mmHg BP Diastolic 80 mmHg Respiratory Rate 16 /min Height 66 inches 5'6" BMI (Body Mass Index) 42.4 kg/m2 03/31/2014 3:07pm Body Temperature 98.1 F Weight 254.00 lb Heart Rate 84 /min BP Systolic 120 mmHg BP Diastolic 80 mmHg Respiratory Rate 16 /min Height 66 inches 5'6" BMI (Body Mass Index) 41.0 kg/m2 01/26/2014 5:05pm Body Temperature 98.1 F Weight 245.00 lb Heart Rate 76 /min BP Systolic 120 mmHg BP Diastolic 80 mmHg Respiratory Rate 16 /min Height 66 inches 5'6" BMI (Body Mass Index) 39.5 kg/m2 11/25/2013 3:01pm Body Temperature 98.4 F Weight 254.00 lb Heart Rate 84 /min BP Systolic 120 mmHg BP Diastolic 80 mmHg Respiratory Rate 16 /min Height 66 inches 5'6" BMI (Body Mass Index) 41.0 kg/m2 10/20/2013 11:13am Body Temperature 98.1 F Weight 245.00 lb Heart Rate 97 /min BP Systolic 132 mmHg BP Diastolic 82 mmHg Respiratory Rate 20 /min Height 66 inches 5'6" O2 % BldC Oximetry 97 % BMI (Body Mass Index) 39.5 kg/m2 09/09/2013 3:23pm Body Temperature 98.8 F Weight 239.00 lb Heart Rate 97 /min BP Systolic 120 mmHg BP Diastolic 86 mmHg Respiratory Rate 20 /min Height 66 inches 5'6" BMI (Body Mass Index) 38.6 kg/m2 05/04/2013 1:26pm Body Temperature 97.0 F Weight 241.00 lb Heart Rate 72 /min BP Systolic 120 mmHg BP Diastolic 80 mmHg Respiratory Rate 16 /min Height 66 inches 5'6" BMI (Body Mass Index) 38.9 kg/m2 04/08/2013 10:07am Body Temperature 98.1 F Weight 242.00 lb Heart Rate 88 /min BP Systolic 114 mmHg BP Diastolic 68 mmHg Respiratory Rate 16 /min Height 66 inches 5'6" BMI (Body Mass Index) 39.1 kg/m2 12/29/2012 2:33pm Body Temperature 98.0 F Weight 245.00 lb Heart Rate 72 /min BP Systolic 132 mmHg BP Diastolic 88 mmHg Respiratory Rate 16 /min Height 66 inches 5'6" BMI (Body Mass Index) 39.5 kg/m2 10/15/2012 2:14pm Body Temperature 98.1 F Weight 244.00 lb Heart Rate 98 /min BP Systolic 126 mmHg BP Diastolic 84 mmHg Respiratory Rate 16 /min Height 66 inches 5'6" BMI (Body Mass Index) 39.4 kg/m2 08/06/2012 3:24pm Body Temperature 98.6 F Weight 246.00 lb Heart Rate 84 /min BP Systolic 134 mmHg BP Diastolic 80 mmHg Respiratory Rate 16 /min Height 66 inches 5'6" BMI (Body Mass Index) 39.7 kg/m2 05/06/2012 3:36pm Body Temperature 97.3 F Weight 232.00 lb Heart Rate 76 /min BP Systolic 118 mmHg BP Diastolic 70 mmHg Respiratory Rate 16 /min Height 66 inches 5'6" BMI (Body Mass Index) 37.4 kg/m2 03/24/2012 1:18pm Body Temperature 98.5 F Weight 232.00 lb Heart Rate 72 /min BP Systolic 122 mmHg BP Diastolic 86 mmHg Respiratory Rate 16 /min Height 66 inches 5'6" BMI (Body Mass Index) 37.4 kg/m2 01/22/2012 2:58pm Body Temperature 97.8 F Weight 235.00 lb Heart Rate 76 /min BP Systolic 118 mmHg BP Diastolic 70 mmHg Respiratory Rate 16 /min Height 66 inches 5'6" BMI (Body Mass Index) 37.9 kg/m2 12/04/2011 5:35pm Body Temperature 98.5 F Weight 236.00 lb Heart Rate 74 /min BP Systolic 128 mmHg BP Diastolic 78 mmHg Respiratory Rate 14 /min Height 66 inches 5'6" BMI (Body Mass Index) 38.1 kg/m2 Results Test Date Facility Test Result [...] [facility] LDL 89 mg/dL 20-99 10 CBC with Auto Diff-fcmg 05/09/2018 [facility] WBC 14.0 K/uL High 4.1-11.0 11 RBC 4.83 M/uL 4.60-6.10 Hemoglobin 14.9 gm/dL 13.5-18.0 Hematocrit 44.2 % 41.0-53.0 MCV 91.6 fL 80.0-97.0 MCH 30.8 pg 27.0-32.0 MCHC 33.6 g/dL 32.0-36.0 RDW 14.0 % 11.5-14.5 PLT Count 259 K/ul 140-400 MPV 8.5 FL 7.1-10.7 Neutrophil 69.1 % 35.0-75.0 Lymphocyte 20.5 % 16.0-52.0 Monocyte 7.0 % 2.0-10.0 Eosinophil 2.8 % 0.0-5.0 Basophil 0.6 % 0.0-4.0 Abs Neutrophils 9.6 K/uL High 2.1-8.0 Abs Lymphocytes 2.9 K/uL 0.8-5.5 Abs Monocytes 1.0 K/uL 0.1-1.0 Abs Eosinophils 0.4 K/uL 0.0-0.5 Abs Basophils 0.1 K/uL 0.0-0.3 Comprehensive Met Panel-[facility] 05/09/2018 [facility] Sodium 140 mmol/L 135- 146 12 Potassium 3.9 mmol/L 3.5-5.2 Chloride# 106 mmol/L 97-110 13 Carbon Dioxide 23 mmol/L Low 24-34 Glucose 117 mg/dL High 70-105 BUN 10 mg/dL 6-26 Creatinine 0.8 mg/dL 0.5-1.4 Calcium 9.7 mg/dL 8.5-10.2 Total Protein 7.4 g/dL 6.0-8.0 Albumin 4.9 g/dL 3.6-4.9 Globulin 2.5 g/dL 2.0-3.5 A/G Ratio 2.0 Ratio 1.0-2.2 Total Bilirubin 0.4 mg/dL 0.1-1.3 Alkaline Phosphatase 74 U/L 24-140 Alt 61 U/L High 3-42 Ast 24 U/L 8-42 Lili Egfr >60 >60 14 Non Lili Egfr >60 >60 15 Anion Gap 11 mmol/L 5-15 16 [facility] 7.8 % High 4.1-5.9 Estimated Average Glucose Calc 177 mg/dL High 71-140 Comprehensive Met Panel-[facility] 03/07/2018 [facility] Sodium 138 mmol/L 135- 146 17, 18 Potassium 3.0 mmol/L Low 3.5-5.2 Chloride# 99 mmol/L 97-110 19 Carbon Dioxide 25 mmol/L 24-34 Glucose 268 mg/dL High 70-105 BUN 9 mg/dL 6-26 Creatinine 0.8 mg/dL 0.5-1.4 Calcium 9.7 mg/dL 8.5-10.2 Total Protein 6.5 g/dL 6.0-8.0 Albumin 4.4 g/dL 3.6-4.9 Globulin 2.1 g/dL 2.0-3.5 A/G Ratio 2.1 Ratio 1.0-2.2 Total Bilirubin 0.4 mg/dL 0.1-1.3 Alkaline Phosphatase 69 U/L 24-140 Alt 61 U/L High 3-42 Ast 56 U/L High 8-42 Lili Egfr >60 >60 20 Non Lili Egfr >60 >60 21 Anion Gap 14 mmol/L 5-15 22 Laboratory test 11/22/2017 [facility] Vitamin D 25 13 ng/mL Low 30-100 23, 24 finding Hydroxy Direct LDL 124 mg/dL High 20-99 25 Hemoglobin A1c 11/22[facility] A1[facility] 6.6 % High 4.1-5.9 Estimated Average Glucose Calc 143 mg/dL High 71-140 Lipid 11/22/2017 [facility] Cholesterol 225 mg/dL High 50-199 Triglycerides 523 mg/dL High 30-200 26 HDL 41 mg/dL 29-71 27 Chol/ HDL Ratio 5.5 ratio 4.0-6.7 Comprehensive Met Panel-[facility] 11/22/2017 [facility] Sodium 140 mmol/L 135- 146 28 Potassium 3.6 mmol/L 3.5-5.2 Chloride# 101 mmol/L 97-110 29 Carbon Dioxide 25 mmol/L 24-34 Glucose 145 mg/dL High 70-105 BUN 12 mg/dL 6-26 Creatinine 0.9 mg/dL 0.5-1.4 Calcium 9.9 mg/dL 8.5-10.2 Total Protein 7.3 g/dL 6.0-8.0 Albumin 5.2 g/dL High 3.6-4.9 Globulin 2.1 g/dL 2.0-3.5 A/G Ratio 2.5 Ratio High 1.0-2.2 Total Bilirubin 0.3 mg/dL 0.1-1.3 Alkaline Phosphatase 71 U/L 24-140 Alt 59 U/L High 3-42 Ast 26 U/L 8-42 Lili Egfr >60 >60 30 Non Lili Egfr >60 >60 31 Anion Gap 14 mmol/L 5-15 32 CBC with [facility]cmg 11[facility]22[facility] 14.5 K/uL High 4.1-11.0 RBC 4.75 M/uL 4.60-6.10 Hemoglobin 15.2 gm/dL 13.5-18.0 Hematocrit 43.9 % 41.0-53.0 MCV 92.4 fL 80.0-97.0 MCH 32.0 pg 27.0-32.0 MCHC 34.6 g/dL 32.0-36.0 RDW 13.1 % 11.5-14.5 PLT Count 255 K/ul 140-400 MPV 8.7 FL 7.1-10.7 Neutrophil 65.6 % 35.0-75.0 Lymphocyte 23.4 % 16.0-52.0 Monocyte 7.9 % 2.0-10.0 Eosinophil 2.6 % 0.0-5.0 Basophil 0.5 % 0.0-4.0 Abs Neutrophils 9.5 K/uL High 2.1-8.0 Abs Lymphocytes 3.4 K/uL 0.8-5.5 Abs Monocytes 1.1 K/uL High 0.1-1.0 Abs Eosinophils 0.4 K/uL 0.0-0.5 Abs Basophils 0.1 K/uL 0.0-0.3 Laboratory test finding 07/01/2017 [facility] Vitamin B12 259 pg/mL 180- 914 33 Vit D25oh 21 ng/mL Low 31-100 Hemoglobin A[facility]c 07[facility]01[facility] A1[facility] 5.6 % 4.1-5.9 Estimated Average Glucose Calc 114 71-140 Laboratory test finding 07/01/2017 [facility] TSH 1.17 uIU/mL 0.35-4.94 Lipid 07/01/2017 [facility] Cholesterol 169 mg/dL 50-199 Triglycerides 92 mg/dL 30-200 HDL 71 mg/dL 29-71 34 Chol/ HDL Ratio 2.4 ratio Low 4.0-6.7 VLDL 18 mg/dL 2-29 LDL (Calc) 80 mg/dL 20-99 35 Comprehensive Met Panel-[facility] 07/01/2017 [facility] Sodium 142 mmol/L 135- 146 36 Potassium 3.4 mmol/L Low 3.5-5.2 Chloride# 102 mmol/L 97-110 37 Carbon Dioxide 24 mmol/L 24-34 Glucose 85 mg/dL 70-105 Creatinine 0.8 mg/dL 0.5-1.4 Calcium 9.8 mg/dL 8.5-10.2 Total Protein 7.0 g/dL 6.0-8.0 Albumin 5.0 g/dL High 3.6-4.9 Globulin 2.0 g/dL 2.0-3.5 A/G Ratio 2.5 Ratio High 1.0-2.2 Total Bilirubin 0.4 mg/dL 0.1-1.3 Alkaline Phosphatase 65 U/L 24-140 Alt 21 U/L 3-42 Ast 18 U/L 8-42 Lili Egfr >60 >60 38 Non Lili Egfr >60 >60 39 Anion Gap 16 mmol/L 7-16 40 BUN 12 mg/dL 6-26 CBC With Auto Diff 07/01/2017 [facility] WBC 7.9 K/uL 4.1-11.0 RBC 4.88 M/uL 4.60-6.10 Hemoglobin 15.4 gm/dL 13.5-18.0 Hematocrit 46.7 % 41.0-53.0 MCV 95.7 fL 80.0-97.0 MCH 31.6 pg 27.0-32.0 MCHC 33.0 g/dL 32.0-36.0 RDW 13.4 % 11.5-14.5 PLT Count 209 K/ul 140-400 MPV 8.5 FL 7.1-10.7 Neutrophil 58.1 % 35.0-75.0 Lymphocyte 30.3 % 16.0-52.0 Monocyte 6.6 % 2.0-10.0 Eosinophil 4.1 % 0.0-5.0 Basophil 0.9 % 0.0-4.0 Abs Neutrophils 4.6 K/uL 2.1-8.0 Abs Lymphocytes 2.4 K/uL 0.8-5.5 Abs Monocytes 0.5 K/uL 0.1-1.0 Abs Eosinophils 0.3 K/uL 0.0-0.5 Abs Basophils 0.1 K/uL 0.0-0.3 CBC With Auto Diff 03/18/2017 [facility] WBC 7.5 K/uL 4.1-11.0 41 RBC 4.85 M/uL 4.60-6.10 Hemoglobin 15.4 gm/dL 13.5-18.0 Hematocrit 45.7 % 41.0-53.0 MCV 94.3 fL 80.0-97.0 MCH 31.8 pg 27.0-32.0 MCHC 33.8 g/dL 32.0-36.0 RDW 13.2 % 11.5-14.5 PLT Count 212 K/ul 140-400 Neutrophil 65.1 % 35.0-75.0 Lymphocyte 26.6 % 16.0-52.0 Monocyte 5.2 % 2.0-10.0 Eosinophil 2.5 % 0.0-5.0 Basophil 0.6 % 0.0-4.0 Abs Neutrophils 4.9 K/uL 2.1-8.0 Abs Lymphocytes 2.0 K/uL 0.8-5.5 Abs Monocytes 0.4 K/uL 0.1-1.0 Abs Eosinophils 0.2 K/uL 0.0-0.5 Abs Basophils 0.0 K/uL 0.0-0.3 Comprehensive Met Panel-[facility] 03/18/2017 [facility] Sodium 142 mmol/L 135- 146 42 Potassium 4.0 mmol/L 3.5-5.2 Chloride# 107 mmol/L 97-110 43 Carbon Dioxide 26 mmol/L 24-34 Glucose 91 mg/dL 70-105 BUN 7 mg/dL 6-26 Creatinine 0.8 mg/dL 0.5-1.4 Calcium 9.8 mg/dL 8.5-10.2 Total Protein 7.1 g/dL 6.0-8.0 Albumin 4.9 g/dL 3.6-4.9 Globulin 2.2 g/dL 2.0-3.5 A/G Ratio 2.2 Ratio 1.0-2.2 Total Bilirubin 0.4 mg/dL 0.1-1.3 Alkaline Phosphatase 49 U/L 24-140 Alt 16 U/L 3-42 Ast 16 U/L 8-42 Lili Egfr >60 >60 44 Non Lili Egfr >60 >60 45 Anion Gap 9 mmol/L 7-16 46 Lipid 03/18/2017 [facility] Cholesterol 139 mg/dL 50-199 Triglycerides 106 mg/dL 30-200 HDL 62 mg/dL 29- 47 Chol/ HDL Ratio 2.3 ratio Low 4.0-6.7 VLDL 21 mg/dL 2-29 LDL (Calc) 56 mg/dL 20-99 48 Laboratory test finding 03/18/2017 [facility] TSH 0.39 uIU/mL 0.35-4.94 Vit D25oh 20 ng/mL Low 31-100 Laboratory test 03/18/2017 [facility] Prolactin 5.9 ng/ml 2.6-13.1 49 finding Testosterone,Free & 11/12/2016 [facility] Testosterone Total 204 ng/dL Low 285-950 Total-Male Adult Male Sex Hormone Binding Globulin 17.6 nmol/L 13.3-89.5 Testosterone Free Adult Male 53 pg/mL 50-247 Testosterone Percent Free 2.6 % 1.8-3.2 Laboratory test finding 11/12/2016 [facility] Hemoglobin A1c 5.7 % 4.1-5.9 Vit D,25 Hydroxy 21 ng/mL Low 31-100 Vitamin B12 244 pg/mL 180-914 TSH 0.52 uIU/mL 0.35-4.94 Sex Hormone Binding Globulin 18 nmol/L (13-90) 50 Lipid 11/12/2016 [facility] Cholesterol 154 mg/dL 50-199 Triglycerides 222 mg/dL High 30-200 HDL 48 mg/dL -71 51 Chol/ HDL Ratio 3.2 ratio Low 4.0-6.7 VLDL 44 mg/dL High 2-29 LDL (Calc) 62 mg/dL 20-99 52 Comprehensive Metabolic (CMP) 11/12/2016 [facility] Sodium 146 mmol/L 135- 146 53 Potassium 3.7 mmol/L 3.5-5.2 Chloride# 107 mmol/L 97-110 54 Carbon Dioxide 26 mmol/L 24-34 Glucose 96 mg/dL 70-105 BUN 10 mg/dL 6-26 Creatinine 0.7 mg/dL 0.5-1.4 Calcium 10.2 mg/dL 8.5-10.2 Total Protein 7.0 g/dL 6.0-8.0 Albumin 4.9 g/dL 3.6-4.9 Globulin 2.1 g/dL 2.0-3.5 A/G Ratio 2.3 Ratio High 1.0-2.2 Total Bilirubin 0.2 mg/dL 0.1-1.3 Alkaline Phosphatase 50 U/L 24-140 Alt 17 U/L 3-42 Ast 15 U/L 8-42 Lili Egfr >60 >60 55 Non Lili Egfr >60 >60 56 Anion Gap 17 mmol/L High 7-16 57 CBC With Auto Diff 11/12/2016 [facility] WBC 9.8 K/uL 4.1-11.0 RBC 5.16 M/uL 4.60-6.10 Hemoglobin 16.4 gm/dL 13.5-18.0 Hematocrit 48.5 % 41.0-53.0 MCV 94.0 fL 80.0-97.0 MCH 31.9 pg 27.0-32.0 MCHC 33.9 g/dL 32.0-36.0 RDW 13.4 % 11.5-14.5 PLT Count 265 K/ul 140-400 Neutrophil 62.1 % 35.0-75.0 Lymphocyte 28.7 % 16.0-52.0 Monocyte 5.8 % 2.0-10.0 Eosinophil 2.5 % 0.0-5.0 Basophil 0.9 % 0.0-4.0 Abs Neutrophils 6.1 K/uL 2.1-8.0 Abs Lymphocytes 2.8 K/uL 0.8-5.5 Abs Monocytes 0.6 K/uL 0.1-1.0 Abs Eosinophils 0.2 K/uL 0.0-0.5 Abs Basophils 0.1 K/uL 0.0-0.3 Laboratory test finding 01/12/2016 [facility] Hemoglobin A1c 6.5 % High 4.1- 5.9 58 Vit D,25 Hydroxy 25 ng/mL Low 31-100 Lipid 01/12/2016 [facility] Cholesterol 178 mg/dL 50-199 Triglycerides 160 mg/dL 30-200 HDL 43 mg/dL 29-71 59 Chol/ HDL Ratio 4.1 ratio 4.0-6.7 VLDL 32 mg/dL High 2-29 LDL (Calc) 103 mg/dL High 20-99 60 Comprehensive Metabolic (CMP) 01/12/2016 [facility] Sodium 138 mmol/L 134- 142 Potassium 4.2 mmol/L 3.5-5.2 Chloride 101 mmol/L 97-109 Carbon Dioxide 25 mmol/L 24-34 Glucose 130 mg/dL High 70-105 BUN 12 mg/dL 6-26 Creatinine 0.8 mg/dL 0.5-1.4 Calcium 10.3 mg/dL High 8.5-10.2 Total Protein 7.7 g/dL 6.0-8.0 Albumin 5.0 g/dL High 3.6-4.9 Globulin 2.7 g/dL 2.0-3.5 A/G Ratio 1.9 Ratio 1.0-2.2 Total Bilirubin 0.4 mg/dL 0.1-1.3 Alkaline Phosphatase 67 U/L 24-140 Alt 65 U/L High 3-42 Ast 28 U/L 8-42 Anion Gap 16 mmol/L High 6-14 Lili Egfr >60 >60 61 Non Lili Egfr >60 >60 62 CBC With Auto Diff 01/12/2016 [facility] WBC 10.0 K/uL 4.1-11.0 RBC 5.24 M/uL 4.60-6.10 Hemoglobin 16.2 gm/dL 13.5-18.0 Hematocrit 47.3 % 41.0-53.0 MCV 90.4 fL 80.0-97.0 MCH 30.9 pg 27.0-32.0 MCHC 34.2 g/dL 32.0-36.0 RDW 13.5 % 11.5-14.5 PLT Count 224 K/ul 140-400 Neutrophil 65.2 % 35.0-75.0 Lymphocyte 24.0 % 16.0-52.0 Monocyte 6.4 % 2.0-10.0 Eosinophil 3.8 % 0.0-5.0 Basophil 0.6 % 0.0-4.0 Abs Neutrophils 6.5 K/uL 2.1-8.0 Abs Lymphocytes 2.4 K/uL 0.8-5.5 Abs Monocytes 0.6 K/uL 0.1-1.0 Abs Eosinophils 0.4 K/uL 0.0-0.5 Abs Basophils 0.1 K/uL 0.0-0.3 Laboratory test finding 10/17/2015 [facility] TSH 0.96 uIU/mL 0.35-4.94 63 Vitamin B12 373 pg/mL 180-914 Vit D,25 Hydroxy 17 ng/mL Low 31-100 Microalb/Creat Panel 10/17/2015 [facility] Creatinine, Urine 78.6 mg/dL Microalb/Creat Urine 6.49 ug/mgCreat 0.00-30.00 Microalbumin 5.1 ug/ml 0.0-20.0 Laboratory test finding 10/17/2015 [facility] Hemoglobin A1c 7.2 % High 4.1- 5.9 Lipid 10/17/2015 [facility] Cholesterol 150 mg/dL 50-199 Triglycerides 120 mg/dL 30-200 HDL 33 mg/dL 29-71 64 Chol/ HDL Ratio 4.5 ratio 4.0-6.7 VLDL 24 mg/dL 2-29 LDL (Calc) 93 mg/dL 20-99 65 Comprehensive Metabolic (CMP) 10/17/2015 [facility] Sodium 137 mmol/L 134- 142 Potassium 3.8 mmol/L 3.5-5.2 Chloride 103 mmol/L 97-109 Carbon Dioxide 26 mmol/L 24-34 Glucose 109 mg/dL High 70-105 BUN 11 mg/dL 6-26 Creatinine 0.9 mg/dL 0.5-1.4 Calcium 9.6 mg/dL 8.5-10.2 Total Protein 7.4 g/dL 6.0-8.0 Albumin 4.8 g/dL 3.6-4.9 Globulin 2.6 g/dL 2.0-3.5 A/G Ratio 1.8 Ratio 1.0-2.2 Total Bilirubin 0.3 mg/dL 0.1-1.3 Alkaline Phosphatase 68 U/L 24-140 Alt 39 U/L 3-42 Ast 25 U/L 8-42 Anion Gap 12 mmol/L 6-14 Lili Egfr >60 >60 66 Non Lili Egfr >60 >60 67 CBC With Auto Diff 10/17/2015 [facility] WBC 10.2 K/uL 4.1-11.0 RBC 4.85 M/uL 4.60-6.10 Hemoglobin 14.9 gm/dL 13.5-18.0 Hematocrit 44.6 % 41.0-53.0 MCV 91.9 fL 80.0-97.0 MCH 30.8 pg 27.0-32.0 MCHC 33.5 g/dL 32.0-36.0 RDW 12.8 % 11.5-14.5 PLT Count 225 K/ul 140-400 Neutrophil 54.4 % 35.0-75.0 Lymphocyte 36.5 % 16.0-52.0 Monocyte 5.0 % 2.0-10.0 Eosinophil 3.5 % 0.0-5.0 Basophil 0.6 % 0.0-4.0 Abs Neutrophils 5.6 K/uL 2.1-8.0 Abs Lymphocytes 3.7 K/uL 0.8-5.5 Abmon 0.5 K/uL 0.1-1.0 Abs Eosinophils 0.4 K/uL 0.0-0.5 Abs Basophils 0.1 K/uL 0.0-0.3 CBC With Auto Diff 04/27/2015 [facility] WBC 9.4 K/uL 4.1-11.0 68 RBC 5.21 M/uL 4.60-6.10 Hemoglobin 16.0 gm/dL 13.5-18.0 Hematocrit 47.8 % 41.0-53.0 MCV 91.8 fL 80.0-97.0 MCH 30.7 pg 27.0-32.0 MCHC 33.4 g/dL 32.0-36.0 RDW 13.2 % 11.5-14.5 PLT Count 229 K/ul 140-400 Neutrophil 60.0 % 35.0-75.0 Lymphocyte 30.1 % 16.0-52.0 Monocyte 5.9 % 2.0-10.0 Eosinophil 3.2 % 0.0-5.0 Basophil 0.8 % 0.0-4.0 Abs Neutrophils 5.7 K/uL 2.1-8.0 Abs Lymphocytes 2.8 K/uL 0.8-5.5 Abmon 0.6 K/uL 0.1-1.0 Abs Eosinophils 0.3 K/uL 0.0-0.5 Abs Basophils 0.1 K/uL 0.0-0.3 Comprehensive Metabolic (CMP) 04/27/2015 [facility] Sodium 139 mmol/L 134- 142 Potassium 3.6 mmol/L 3.5-5.2 Chloride 103 mmol/L 97-109 Carbon Dioxide 25 mmol/L 24-34 Glucose 112 mg/dL High 70-105 BUN 11 mg/dL 6-26 Creatinine 0.9 mg/dL 0.5-1.4 Calcium 9.7 mg/dL 8.5-10.2 Total Protein 7.7 g/dL 6.0-8.0 Albumin 5.0 g/dL High 3.6-4.9 Globulin 2.7 g/dL 2.0-3.5 A/G Ratio 1.9 Ratio 1.0-2.2 Total Bilirubin 0.4 mg/dL 0.1-1.3 Alkaline Phosphatase 65 U/L 24-140 Alt 59 U/L High 3-42 Ast 29 U/L 8-42 Anion Gap 15 mmol/L High 6-14 Lili Egfr >60 >60 69 Non Lili Egfr >60 >60 70 Lipid 04/27/2015 [facility] Cholesterol 184 mg/dL 50-199 Triglycerides 120 mg/dL 30-200 HDL 36 mg/dL 29-71 71 Chol/ HDL Ratio 5.1 ratio 4.0-6.7 VLDL 24 mg/dL 2-29 LDL (Calc) 124 mg/dL High 20-99 72 Laboratory test finding 04/27/2015 [facility] TSH 0.97 uIU/mL 0.35-4.94 Vitamin B12 301 pg/mL 180-914 Vit D,25 Hydroxy 26 ng/mL Low 31-100 Drugs Of Abuse 04/27/2015 [facility] Amphetamines,Urine NEGATIVE [id number] (Neg) Urine -RL Barbiturates,Urine NEGATIVE [id number] (Neg) Benzodiazepine,Urine NEGATIVE [id number] (Neg) Cannabinoids,Urine NEGATIVE [id number] (Neg) Cocaine,Urine NEGATIVE [id number] (Neg) Opiates,Urine NEGATIVE [id number] (Neg) Phencyclidine,Urine NEGATIVE [id number] (Neg) Please Note: THESE ARE SCREEN <SEE NOTE> 73 Drugs Of Abuse 07/01/2014 [facility] Amphetamines,Urine NEGATIVE [id number] (Neg) 74 Urine -RL Barbiturates,Urine NEGATIVE [id number] (Neg) Benzodiazepine,Urine NEGATIVE [id number] (Neg) Cannabinoids,Urine NEGATIVE [id number] (Neg) Cocaine,Urine NEGATIVE [id number] (Neg) Opiates,Urine NEGATIVE [id number] (Neg) Phencyclidine,Urine NEGATIVE [id number] (Neg) Please Note: THESE ARE SCREEN <SEE NOTE> 75 CBC With Auto Diff 03/31/2014 [facility] WBC 11.5 K/uL High 4.1-11.0 76 RBC 4.95 M/uL 4.60-6.10 Hemoglobin 15.2 gm/dL 13.5-18.0 Hematocrit 45.1 % 41.0-53.0 MCV 91.2 fL 80.0-97.0 MCH 30.8 pg 27.0-32.0 MCHC 33.7 g/dL 32.0-36.0 RDW 13.4 % 11.5-14.5 PLT Count 233 K/ul 140-400 Neutrophil 62.2 % 35.0-75.0 Lymphocyte 29.0 % 16.0-52.0 Monocyte 5.2 % 2.0-10.0 Eosinophil 2.4 % 0.0-5.0 Basophil 1.2 % 0.0-4.0 Abs Neutrophils 7.2 K/uL 2.1-8.0 Abs Lymphocytes 3.4 K/uL 0.8-5.5 Abmon 0.6 K/uL 0.1-1.0 Abs Eosinophils 0.3 K/uL 0.0-0.5 Abs Basophils 0.1 K/uL 0.0-0.3 Comprehensive Metabolic (CMP) 03/31/2014 [facility] Sodium 138 mmol/L 134- 142 Potassium 3.9 mmol/L 3.5-5.2 Chloride 108 mmol/L 97-109 Carbon Dioxide 22 mmol/L Low 24-34 Glucose 112 mg/dL High 70-105 BUN 10 mg/dL 6-26 Creatinine 0.9 mg/dL 0.5-1.4 Calcium 9.8 mg/dL 8.5-10.2 Total Protein 7.4 g/dL 6.0-8.0 Albumin 4.9 g/dL 3.6-4.9 Globulin 2.5 g/dL 2.0-3.5 A/G Ratio 2.0 Ratio 1.0-2.2 Total Bilirubin 0.4 mg/dL 0.1-1.3 Alkaline Phosphatase 58 U/L 24-140 Alt 49 U/L High 3-42 Ast 27 U/L 8-42 Anion Gap 12 mmol/L 6-14 Lili Egfr >60 >60 77 Non Lili Egfr >60 >60 78 Lipid 03/31/2014 [facility] Cholesterol 256 mg/dL High 50-199 Triglycerides 211 mg/dL High 30-200 HDL 39 mg/dL 79 Chol/ HDL Ratio 6.6 ratio 4.0-6.7 VLDL 42 mg/dL High 2-29 LDL (Calc) 175 mg/dL High 20-99 80 Laboratory test 03/31/2014 [facility] Vit D,25 Hydroxy 27 ng/mL Low 31-100 finding Testosterone,Free & 03/31/2014 [facility] Testosterone Total 177 ng/dL Low 285-950 Total-Male Adult Male Sex Hormone Binding Globulin 10.9 nmol/L Low 13.3-89.5 Testosterone Free Adult Male 49 pg/mL Low 50-247 Testosterone Percent Free 2.8 % 1.8-3.2 Lipid 11/25/2013 [facility] Cholesterol 211 mg/dL High 50-199 81 Triglycerides 126 mg/dL 30-200 HDL 44 mg/dL 82 Chol/ HDL Ratio 4.8 ratio 4.0-6.7 VLDL 25 mg/dL 2-29 LDL (Calc) 142 mg/dL High 83 Laboratory test finding 11/25/2013 [facility] TSH 0.66 uIU/mL 0.34-5.60 Vit D,25 Hydroxy 17 ng/mL Low 31-100 Testosterone,Free & 11/25/2013 [facility] Testosterone Total 187 ng/dL Low 285-950 Total-Male Adult Male Sex Hormone Binding Globulin 11.3 nmol/L Low 13.3-89.5 Testosterone Free Adult Male 52 pg/mL 50-247 Testosterone Percent Free 2.8 % 1.8-3.2 CBC With Auto Diff 09/09/2013 [facility] WBC 9.4 K/uL 4.1-11.0 84 RBC 5.30 M/uL 4.60-6.10 Hemoglobin 16.4 gm/dL 13.5-18.0 Hematocrit 47.6 % 41.0-53.0 MCV 89.8 fL 80.0-97.0 MCH 30.9 pg 27.0-32.0 MCHC 34.4 g/dL 32.0-36.0 RDW 12.8 % 11.5-14.5 PLT Count 234 K/ul 140-400 Neutrophil 60.5 % 35.0-75.0 Lymphocyte 29.7 % 16.0-52.0 Monocyte 5.9 % 2.0-10.0 Eosinophil 3.1 % 0.0-5.0 Basophil 0.8 % 0.0-4.0 Abs Neutrophils 5.7 K/uL 2.1-8.0 Abs Lymphocytes 2.8 K/uL 0.8-5.5 Abmon 0.6 K/uL 0.1-1.0 Abs Eosinophils 0.3 K/uL 0.0-0.5 Abs Basophils 0.1 K/uL 0.0-0.3 Comprehensive Metabolic (CMP) 09/09/2013 [facility] Sodium 139 mmol/L 134- 142 Potassium 3.8 mmol/L 3.5-5.2 Chloride 102 mmol/L 97-109 Carbon Dioxide 31 mmol/L 24-34 Glucose 106 mg/dL High 70-105 BUN 7 mg/dL 6-26 Creatinine 0.8 mg/dL 0.5-1.4 Calcium 10.2 mg/dL 8.5-10.2 Total Protein 7.7 g/dL 6.0-8.0 Albumin 5.2 g/dL High 3.6-4.9 Globulin 2.5 g/dL 2.0-3.5 A/G Ratio 2.1 Ratio 1.0-2.2 Total Bilirubin 0.4 mg/dL 0.1-1.3 Alkaline Phosphatase 64 U/L 24-140 Alt 62 U/L High 3-42 Ast 27 U/L 8-42 Anion Gap 10 mmol/L 6-14 Lili Egfr >60 >60 85 Non Lili Egfr >60 >60 86 Laboratory test finding 09/09/2013 [facility] Vitamin B12 249 pg/mL 180- 914 Vit D,25 Hydroxy 19 ng/mL Low 31-100 TSH 0.91 uIU/mL 0.34-5.60 Testosterone,Free & 09/09/2013 [facility] Testosterone Total 235 ng/dL Low 285-950 Total-Male Adult Male Sex Hormone Binding Globulin 10.8 nmol/L Low 13.3-89.5 Testosterone Free Adult Male 64 pg/mL 50-247 Testosterone Percent Free 2.7 % 1.8-3.2 Drugs Of Abuse 09/09/2013 [facility] Amphetamines,Urine NEGATIVE [id number] (Neg) Urine -RL Barbiturates,Urine NEGATIVE [id number] (Neg) Benzodiazepine,Urine NEGATIVE [id number] (Neg) Cannabinoids,Urine NEGATIVE [id number] (Neg) Cocaine,Urine NEGATIVE [id number] (Neg) Opiates,Urine NEGATIVE [id number] (Neg) Phencyclidine,Urine NEGATIVE [id number] (Neg) Please Note: THESE ARE SCREEN <SEE NOTE> 87 TST FR+T Adult Male -RL 08/06/2012 [facility] Testosterone 94 ng/dL Low 88 , 89 Sex Binding Glob 13 nmol/L 90 Testosterone Free 24 pg/mL Low 91 Testosterone % Free 2.5 % 92 CBC With Auto Diff 08/06/2012 [facility] WBC 7.4 K/uL 4.1-11.0 RBC 5.10 M/uL 4.60-6.10 Hemoglobin 16.0 gm/dL 13.5-18.0 Hematocrit 46.0 % 41.0-53.0 MCV 90.1 fL 80.0-97.0 MCH 31.3 pg 27.0-32.0 MCHC 34.8 g/dL 32.0-36.0 RDW 12.7 % 11.5-14.5 PLT Count 207 K/ul 140-400 Neutrophil 47.1 % 35.0-75.0 Lymphocyte 37.2 % 16.0-52.0 Monocyte 8.9 % 2.0-10.0 Eosinophil 5.6 % High 0.0-5.0 Basophil 1.2 % 0.0-4.0 Abs Neutrophils 3.5 K/uL 2.1-8.0 Abs Lymphocytes 2.7 K/uL 0.8-5.5 Abs Monocytes 0.7 K/uL 0.1-1.0 Abs Eosinophils 0.4 K/uL 0.0-0.5 Abs Basophils 0.1 K/uL 0.0-0.3 Comprehensive Metabolic (CMP) 08/06/2012 [facility] Sodium 138 mmol/L 134- 142 Potassium 3.7 mmol/L 3.5-5.2 Chloride 100 mmol/L 97-109 Carbon Dioxide 31 mmol/L 24-34 Glucose 89 mg/dL 70-105 BUN 12 mg/dL 6-26 Creatinine 0.9 mg/dL 0.5-1.4 Calcium 9.6 mg/dL 8.5-10.2 Total Protein 7.8 g/dL 6.0-8.0 Albumin 5.0 g/dL High 3.6-4.9 Globulin 2.8 g/dL 2.0-3.5 A/G Ratio 1.8 Ratio 1.0-2.2 Total Bilirubin 0.3 mg/dL 0.1-1.3 Alkaline Phosphatase 64 U/L 24-140 Alt 28 U/L 3-42 Ast 18 U/L 8-42 Anion Gap 11 mmol/L 6-14 Lili Egfr >60 >60 93 Non Lili Egfr >60 >60 94 Lipid 08/06/2012 [facility] Cholesterol 161 mg/dL 50-199 Triglycerides 112 mg/dL 30-200 HDL 39 mg/dL 29-71 95 Chol/ HDL Ratio 4.1 ratio 4.0-6.7 VLDL 22 mg/dL 2-29 LDL (Calc) 100 mg/dL 20-129 96 Non HDL Cholesterol 122 mg/dL 20-129 97 Laboratory test finding 08/06/2012 [facility] Vit D,25 Hydroxy 20 ng/mL Low 31-100 CBC With Auto Diff 05/06/2012 [facility] WBC 13.7 K/uL High 4.1-11.0 RBC 5.25 M/uL 4.60-6.10 Hemoglobin 16.5 gm/dL 13.5-18.0 Hematocrit 46.9 % 41.0-53.0 MCV 89.3 fL 80.0-97.0 MCH 31.5 pg 27.0-32.0 MCHC 35.3 g/dL 32.0-36.0 RDW 13.1 % 11.5-14.5 PLT Count 258 K/ul 140-400 Neutrophil 72.4 % 35.0-75.0 Lymphocyte 20.6 % 16.0-52.0 Monocyte 5.0 % 2.0-10.0 Eosinophil 1.5 % 0.0-5.0 Basophil 0.5 % 0.0-4.0 Abs Neutrophils 9.9 K/uL High 2.1-8.0 Abs Lymphocytes 2.8 K/uL 0.8-5.5 Abs Monocytes 0.7 K/uL 0.1-1.0 Abs Eosinophils 0.2 K/uL 0.0-0.5 Abs Basophils 0.1 K/uL 0.0-0.3 Comprehensive Metabolic (CMP) 05/06/2012 [facility] Sodium 138 mmol/L 134- 142 Potassium 3.9 mmol/L 3.5-5.2 Chloride 102 mmol/L 97-109 Carbon Dioxide 27 mmol/L 24-34 Glucose 91 mg/dL 70-105 BUN 9 mg/dL 6-26 Creatinine 0.9 mg/dL 0.5-1.4 Calcium 10.0 mg/dL 8.5-10.2 Total Protein 7.8 g/dL 6.0-8.0 Albumin 5.1 g/dL High 3.6-4.9 Globulin 2.7 g/dL 2.0-3.5 A/G Ratio 1.9 Ratio 1.0-2.2 Total Bilirubin 0.6 mg/dL 0.1-1.3 Alkaline Phosphatase 61 U/L 24-140 Alt 41 U/L 3-42 Ast 22 U/L 8-42 Anion Gap 13 mmol/L 6-14 Lili Egfr >60 >60 98 Non Lili Egfr >60 >60 99 Lipid 05/06/2012 [facility] Cholesterol 160 mg/dL 50-199 Triglycerides 162 mg/dL 30-200 HDL 33 mg/dL 29-71 100 Chol/ HDL Ratio 4.8 ratio 4.0-6.7 VLDL 32 mg/dL High 2-29 LDL (Calc) 95 mg/dL 20-129 101 Laboratory test finding 05/06/2012 [facility] Vitamin B12 205 pg/mL 180- 914 1 This sample is drawn by:wilman 2 [...] high: 130-159 High: 160-189 Very high: >189 11 This sample is drawn by:yuan 12 Updated reference range on new analyzer 13 Updated reference range on new analyzer 14 Concerning GFR Guidelines for Americans: Normal function or mild renal disease, if clinically at risk: >/= 60 mL/min Moderately decreased: 30-59 Severely decreased: 15-29 Renal failure: <15 15 Concerning GFR Guidelines: Normal function or mild renal disease, if clinically at risk: >/= 60 mL/min Moderately decreased: 30-59 Severely decreased: 15-29 Renal failure: <15 Glomerular Filtration Rate (GFR) is estimated based on the MDRD equation, which assumes a steady state for [...] drugs that are excreted by the kidneys. 16 Updated Reference Range 17 This sample is drawn by:[email or web address] 18 Updated reference range on new analyzer 19 Updated reference range on new analyzer 20 Concerning GFR Guidelines for Americans: Normal function or mild renal disease, if clinically at risk: >/= 60 mL/min Moderately decreased: 30-59 Severely decreased: 15-29 Renal failure: <15 21 Concerning GFR Guidelines: Normal function or mild renal disease, if clinically at risk: >/= 60 mL/min Moderately decreased: 30-59 Severely decreased: 15-29 Renal failure: <15 Glomerular Filtration Rate (GFR) is estimated based on the MDRD equation, which assumes a steady state for [...] drugs that are excreted by the kidneys. 22 Updated Reference Range 23 This sample is drawn by:alejandro 24 Clinical Guidelines for recommended serum 25(OH)Vitamin D Deficient at less than 20 ng/mL Insufficient at 20 to <30 ng/mL Sufficient at 30-100 ng/mL Toxicity at greater than 100 ng/mL 25 Per NCEP ATP III Guidelines: Normal population: <130 Patients with medical conditions: CHD/DM Optimal range: <100 Borderline high: 130-159 High: 160-189 Very high: >189 26 Specimen Slightly Lipemic 27 Per NCEP ATP III Guidelines: Results lower than 40 mg/dL are suggestive of increased risk for coronary artery disease. Results > or = to 60 mg/dL are considered a negative risk factor. 28 Updated reference range on new analyzer 29 Updated reference range on new analyzer 30 Concerning GFR Guidelines for Americans: Normal function or mild renal disease, if clinically at risk: >/= 60 mL/min Moderately decreased: 30-59 Severely decreased: 15-29 Renal failure: <15 31 Concerning GFR Guidelines: Normal function or mild renal disease, if clinically at risk: >/= 60 mL/min Moderately decreased: 30-59 Severely decreased: 15-29 Renal failure: <15 Glomerular Filtration Rate (GFR) is estimated based on the MDRD equation, which assumes a steady state for [...] drugs that are excreted by the kidneys. 32 Updated Reference Range 33 This sample is drawn by:wilman 34 Per NCEP ATP III Guidelines: Results lower than 40 mg/dL are suggestive of increased risk for coronary artery disease. Results > or = to 60 mg/dL are considered a negative risk factor. 35 Per NCEP ATP III Guidelines: Normal Population <130 Patients with medical conditions: CHD/DM Optimal: <100 Borderline high: 130-159 High: 160-189 Very high: >189 36 Updated reference range on new analyzer 37 Updated reference range on new analyzer 38 Concerning GFR Guidelines for Americans: Normal function or mild renal disease, if clinically at risk: >/= 60 mL/min Moderately decreased: 30-59 Severely decreased: 15-29 Renal failure: <15 39 Concerning GFR Guidelines: Normal function or mild renal disease, if clinically at risk: >/= 60 mL/min Moderately decreased: 30-59 Severely decreased: 15-29 Renal failure: <15 Glomerular Filtration Rate (GFR) is estimated based on the MDRD equation, which assumes a steady state for [...] drugs that are excreted by the kidneys. 40 Updated reference range on new analyzer 41 This sample is drawn by:tg 42 Updated reference range on new analyzer 43 Updated reference range on new analyzer 44 Concerning GFR Guidelines for Americans: Normal function or mild renal disease, if clinically at risk: >/= 60 mL/min Moderately decreased: 30-59 Severely decreased: 15-29 Renal failure: <15 45 Concerning GFR Guidelines: Normal function or mild renal disease, if clinically at risk: >/= 60 mL/min Moderately decreased: 30-59 Severely decreased: 15-29 Renal failure: <15 Glomerular Filtration Rate (GFR) is estimated based on the MDRD equation, which assumes a steady state for [...] drugs that are excreted by the kidneys. 46 Updated reference range on new analyzer 47 Per NCEP ATP III Guidelines: Results lower than 40 mg/dL are suggestive of increased risk for coronary artery disease. Results > or = to 60 mg/dL are considered a negative risk factor. 48 Per NCEP ATP III Guidelines: Normal Population <130 Patients with medical conditions: CHD/DM Optimal: <100 Borderline high: 130-159 High: 160-189 Very high: >189 49 Prolactin Female Normal Values: Pre-menopausal: 3.3-26.7 ng/mL Post-menopausal:2.7-19.6 ng/mL 50 ADULT REFERENCE RANGE Unless otherwise specified, testing performed by [facility] [address] [place] [id number] 51 Per NCEP ATP III Guidelines: Results lower than 40 mg/dL are suggestive of increased risk for coronary artery disease. Results > or = to 60 mg/dL are considered a negative risk factor. 52 Per NCEP ATP III Guidelines: Normal Population <130 Patients with medical conditions: CHD/DM Optimal: <100 Borderline high: 130-159 High: 160-189 Very high: >189 53 Updated reference range on new analyzer 54 Updated reference range on new analyzer 55 Concerning GFR Guidelines for Americans: Normal function or mild renal disease, if clinically at risk: >/= 60 mL/min Moderately decreased: 30-59 Severely decreased: 15-29 Renal failure: <15 56 Concerning GFR Guidelines: Normal function or mild renal disease, if clinically at risk: >/= 60 mL/min Moderately decreased: 30-59 Severely decreased: 15-29 Renal failure: <15 Glomerular Filtration Rate (GFR) is estimated based on the MDRD equation, which assumes a steady state for [...] drugs that are excreted by the kidneys. 57 Updated reference range on new analyzer 58 This sample is drawn by:KN Fastin hours This sample is drawn by:KN Fastin hours This sample is drawn by:KN Fastin hours Fastin hours Fastin hours This sample is drawn by:KN Fastin hours 59 Per NCEP ATP III Guidelines: Results lower than 40 mg/dL are suggestive of increased risk for coronary artery disease. Results > or = to 60 mg/dL are considered a negative risk factor. 60 Per NCEP ATP III Guidelines: Normal Population <130 Patients with medical conditions: CHD/DM Optimal: <100 Borderline high: 130-159 High: 160-189 Very high: >189 61 Concerning GFR Guidelines for Americans: Normal function or mild renal disease, if clinically at risk: >/= 60 mL/min Moderately decreased: 30-59 Severely decreased: 15-29 Renal failure: <15 62 Concerning GFR Guidelines: Normal function or mild renal disease, if clinically at risk: >/= 60 mL/min Moderately decreased: 30-59 Severely decreased: 15-29 Renal failure: <15 Glomerular Filtration Rate (GFR) is estimated based on the MDRD equation, which assumes a steady state for [...] drugs that are excreted by the kidneys. 63 This sample is drawn by:YUAN 64 Per NCEP ATP III Guidelines: Results lower than 40 mg/dL are suggestive of increased risk for coronary artery disease. Results > or = to 60 mg/dL are considered a negative risk factor. 65 Per NCEP ATP III Guidelines: Normal Population <130 Patients with medical conditions: CHD/DM Optimal: <100 Borderline high: 130-159 High: 160-189 Very high: >189 66 Concerning GFR Guidelines for Americans: Normal function or mild renal disease, if clinically at risk: >/= 60 mL/min Moderately decreased: 30-59 Severely decreased: 15-29 Renal failure: <15 67 Concerning GFR Guidelines: Normal function or mild renal disease, if clinically at risk: >/= 60 mL/min Moderately decreased: 30-59 Severely decreased: 15-29 Renal failure: <15 Glomerular Filtration Rate (GFR) is estimated based on the MDRD equation, which assumes a steady state for [...] drugs that are excreted by the kidneys. 68 This sample is drawn by: sidney 69 Concerning GFR Guidelines for Americans: Normal function or mild renal disease, if clinically at risk: >/= 60 mL/min Moderately decreased: 30-59 Severely decreased: 15-29 Renal failure: <15 70 Concerning GFR Guidelines: Normal function or mild renal disease, if clinically at risk: >/= 60 mL/min Moderately decreased: 30-59 Severely decreased: 15-29 Renal failure: <15 Glomerular Filtration Rate (GFR) is estimated based on the MDRD equation, which assumes a steady state for [...] drugs that are excreted by the kidneys. 71 Per NCEP ATP III Guidelines: Results lower than 40 mg/dL are suggestive of increased risk for coronary artery disease. Results > or = to 60 mg/dL are considered a negative risk factor. 72 Per NCEP ATP III Guidelines: Normal Population <130 Patients with medical conditions: CHD/DM Optimal: <100 Borderline high: 130-159 High: 160-189 Very high: >189 73 THESE ARE SCREENING IMMUNOASSAY TESTS THAT ARE REPORTED POSITIVE WHEN THE RESULTS EXCEED THE THRESHOLD (CUTOFF) INDICATED. A LIST OF POTENTIAL INTERFERENCES FOR EACH METHOD CAN BE MADE AVAILABLE UPON REQUEST. A CONFIRMATORY ANALYSIS IS ORDERED ON ALL DRUGS SCREENING POSITIVE BY THIS METHOD. PERFORMED AT [address] [place] [id number] Unless otherwise specified, testing performed by [facility], [facility] [address] [place] [id number] Fastin hours 75 THESE ARE SCREENING IMMUNOASSAY TESTS THAT ARE REPORTED POSITIVE WHEN THE RESULTS EXCEED THE THRESHOLD (CUTOFF) INDICATED. A LIST OF POTENTIAL INTERFERENCES FOR EACH METHOD CAN BE MADE AVAILABLE UPON REQUEST. A CONFIRMATORY ANALYSIS IS ORDERED ON ALL DRUGS SCREENING POSITIVE BY THIS METHOD. PERFORMED AT [address] [place] [id number] Unless otherwise specified, testing performed by [facility] [address] [place] [id number] HN 77 Concerning GFR Guidelines for Americans: Normal function or mild renal disease, if clinically at risk: >/= 60 mL/min Moderately decreased: 30-59 Severely decreased: 15-29 Renal failure: <15 78 Concerning GFR Guidelines: Normal function or mild renal disease, if clinically at risk: >/= 60 mL/min Moderately decreased: 30-59 Severely decreased: 15-29 Renal failure: <15 Glomerular Filtration Rate (GFR) is estimated based on the MDRD equation, which assumes a steady state for [...] drugs that are excreted by the kidneys. 79 Per NCEP ATP III Guidelines: Results lower than 40 mg/dL are suggestive of increased risk for coronary artery disease. Results > or = to 60 mg/dL are considered a negative risk factor. 80 Per NCEP ATP III Guidelines: Normal Population <130 Patients with medical conditions: CHD/DM Optimal: <100 Borderline high: 130-159 High: 160-189 Very high: >189 81 This sample is drawn by:pg 82 Per NCEP ATP III Guidelines: Results lower than 40 mg/dL are suggestive of increased risk for coronary artery disease. Results > or = to 60 mg/dL are considered a negative risk factor. 83 Per NCEP ATP III Guidelines: Normal Population <130 Patients with medical conditions: CHD/DM Optimal: <100 Borderline high: 130-159 High: 160-189 Very high: >189 84 This sample is drawn by: bc 85 Concerning GFR Guidelines for Americans: Normal function or mild renal disease, if clinically at risk: >/= 60 mL/min Moderately decreased: 30-59 Severely decreased: 15-29 Renal failure: <15 86 Concerning GFR Guidelines: Normal function or mild renal disease, if clinically at risk: >/= 60 mL/min Moderately decreased: 30-59 Severely decreased: 15-29 Renal failure: <15 Glomerular Filtration Rate (GFR) is estimated based on the MDRD equation, which assumes a steady state for [...] drugs that are excreted by the kidneys. 87 THESE ARE SCREENING IMMUNOASSAY TESTS THAT ARE REPORTED POSITIVE WHEN THE RESULTS EXCEED THE THRESHOLD (CUTOFF) INDICATED. A LIST OF POTENTIAL INTERFERENCES FOR EACH METHOD CAN BE MADE AVAILABLE UPON REQUEST. A CONFIRMATORY ANALYSIS IS ORDERED ON ALL DRUGS SCREENING POSITIVE BY THIS METHOD. PERFORMED AT [address] [place] [address] Unless otherwise specified, testing performed by [facility] [address] [place] [id number] This sample is drawn by:ANGELA 89 Reference range: 300 to 1080 REFERENCE INTERVAL: Testosterone, Adult Male Access complete set of age- and/or gender-specific reference intervals for this test in the [facility] ([employer]). 90 Reference range: 11 to 80 REFERENCE INTERVAL: Sex Hormone Binding Globulin Access complete set of age- and/or gender-specific reference intervals for this test in the [facility] ([employer]). 91 Reference range: 47 to 244 INTERPRETIVE INFORMATION: Testosterone, Free Jesus Stage IV 35 - 169 pg/mL Jesus Stage V 41 - 239 pg/mL The concentration of Free Testosterone is derived from a mathematical expression based on the constant for the binding of testosterone to Sex Hormone Binding Globulin (SHBG). Access complete set of age- and/or gender-specific reference intervals for this test in the [facility] Directory ([employer]). 92 Reference range: 1.6 to 2.9 Performed by [facility], [address] [place] [id number] www.[employer], Malathi Logan MD, Lab. Director Unless otherwise specified, testing performed by [facility] [address] [place] [id number] Concerning GFR Guidelines for Americans: Normal function or mild renal disease, if clinically at risk: >/= 60 mL/min Moderately decreased: 30-59 Severely decreased: 15-29 Renal failure: <15 94 Concerning GFR Guidelines: Normal function or mild renal disease, if clinically at risk: >/= 60 mL/min Moderately decreased: 30-59 Severely decreased: 15-29 Renal failure: <15 Glomerular Filtration Rate (GFR) is estimated based on the MDRD equation, which assumes a steady state for [...] drugs that are excreted by the kidneys. 95 Per NCEP ATP III Guidelines: Results lower than 40 mg/dL are suggestive of increased risk for coronary artery disease. Results > or = to 60 mg/dL are considered a negative risk factor. 96 Per NCEP ATP III Guidelines: Optimal: <100 Near optimal: 100-129 Borderline high: 130-159 High: 160-189 Very high: >189 97 Desirable: <130 Borderline High: 130-159 High: 160-189 Very high: 190 or greater 98 Concerning GFR Guidelines for Americans: Normal function or mild renal disease, if clinically at risk: >/= 60 mL/min Moderately decreased: 30-59 Severely decreased: 15-29 Renal failure: <15 99 Concerning GFR Guidelines: Normal function or mild renal disease, if clinically at risk: >/= 60 mL/min Moderately decreased: 30-59 Severely decreased: 15-29 Renal failure: <15 Glomerular Filtration Rate (GFR) is estimated based on the MDRD equation, which assumes a steady state for [...] drugs that are excreted by the kidneys. 100 Per NCEP ATP III Guidelines: Results lower than 40 mg/dL are suggestive of increased risk for coronary artery disease. Results > or = to 60 mg/dL are considered a negative risk factor. 101 Per NCEP ATP III Guidelines: Optimal: <100 Near optimal: 100-129 Borderline high: 130-159 High: 160-189 Very high: >189 Procedures Date Code Description Status 10/17/2015 17581 Electrocardiogram Complete Completed 11/25/2013 59826 Spirometry /PFT W/O Bronchodialator Completed 01/22/2012 78031 Electrocardiogram Complete Completed Encounters Type Date Location Provider Dx Diagnosis Office Visit 01/07/2019 [facility], E11.40 Type 2 diabetes 2:00p YAIMA Olivo mellitus with diabetic neuropathy, unsp I10 Essential (primary) hypertension E78.5 Hyperlipidemia, unspecified F33.0 Major depressive disorder, recurrent, mild F41.1 Generalized anxiety disorder G47.00 Insomnia, unspecified K21.9 Gastro-esophageal reflux disease without esophagitis M54.9 Dorsalgia, unspecified E66.01 Morbid (severe) obesity due to excess calories Z68.41 Body mass index (BMI) 40.0-44.9, adult Office Visit 09/26/2018 3:15p [facility], M25.60 Stiffness of Associates Alyce Lee MD unspecified joint, not elsewhere classified E11.40 Type 2 diabetes mellitus with diabetic neuropathy, unsp I10 Essential (primary) hypertension E78.5 Hyperlipidemia, unspecified F33.0 Major depressive disorder, recurrent, mild F41.1 Generalized anxiety disorder G47.00 Insomnia, unspecified K21.9 Gastro-esophageal reflux disease without esophagitis M54.2 Cervicalgia M54.9 Dorsalgia, unspecified D35.2 Benign neoplasm of pituitary gland F17.218 Nicotine dependence, cigarettes, w oth disorders E55.9 Vitamin D deficiency, unspecified E66.01 Morbid (severe) obesity due to excess calories Z68.41 Body mass index (BMI) 40.0-44.9, adult Office Visit 08/21/2018 1:15p [facility], E11.40 Type 2 diabetes Associates Alyce Lee MD mellitus with diabetic neuropathy, unsp I10 Essential (primary) hypertension E78.5 Hyperlipidemia, unspecified F33.0 Major depressive disorder, recurrent, mild F41.1 Generalized anxiety disorder G47.00 Insomnia, unspecified K21.9 Gastro-esophageal reflux disease without esophagitis M54.2 Cervicalgia M54.9 Dorsalgia, unspecified D35.2 Benign neoplasm of pituitary gland F17.218 Nicotine dependence, cigarettes, w oth disorders E55.9 Vitamin D deficiency, unspecified L25.9 Unspecified contact dermatitis, unspecified cause E66.01 Morbid (severe) obesity due to excess calories Z68.41 Body mass index (BMI) 40.0-44.9, adult Office Visit 07/08/2018 11:00a [facility], E11.40 Type 2 diabetes Associates Alyce Lee MD mellitus with diabetic neuropathy, unsp I10 Essential (primary) hypertension E78.5 Hyperlipidemia, unspecified F33.0 Major depressive disorder, recurrent, mild F41.1 Generalized anxiety disorder G47.00 Insomnia, unspecified K21.9 Gastro-esophageal reflux disease without esophagitis M54.2 Cervicalgia E66.09 Other obesity due to excess calories M54.9 Dorsalgia, unspecified D35.2 Benign neoplasm of pituitary gland F17.218 Nicotine dependence, cigarettes, w oth disorders Z00.00 Encntr for general adult medical exam w/o abnormal findings Z68.41 Body mass index (BMI) 40.0-44.9, adult Office Visit 05/09/2018 9:45a [facility], E11.40 Type 2 diabetes Associates Alyce Lee MD mellitus with diabetic neuropathy, unsp I10 Essential (primary) hypertension E87.6 Hypokalemia E78.5 Hyperlipidemia, unspecified F33.0 Major depressive disorder, recurrent, mild F41.1 Generalized anxiety disorder G47.00 Insomnia, unspecified K21.9 Gastro-esophageal reflux disease without esophagitis M54.2 Cervicalgia M54.9 Dorsalgia, unspecified G62.9 Polyneuropathy, unspecified K08.89 Other specified disorders of teeth and supporting structures J01.90 Acute sinusitis, unspecified J20.9 Acute bronchitis, unspecified J44.9 Chronic obstructive pulmonary disease, unspecified F17.219 Nicotine dependence, cigarettes, w unsp disorders E55.9 Vitamin D deficiency, unspecified E66.01 Morbid (severe) obesity due to excess calories Z68.41 Body mass index (BMI) 40.0-44.9, adult Office Visit 03/26/2018 [facility], E11.40 Type 2 diabetes 1:00p Associates YAIMA Wynn mellitus with diabetic neuropathy, unsp M54.9 Dorsalgia, unspecified E66.9 Obesity, unspecified G62.9 Polyneuropathy, unspecified Z68.43 Body mass index (BMI) 50-59.9 , adult Office Visit 03/13/2018 [facility], E11.40 Type 2 diabetes 1:20p YAIMA Olivo mellitus with diabetic neuropathy, unsp E66.9 Obesity, unspecified Office Visit 11/22/2017 [facility], E11.8 Type 2 diabetes 10:00a Ruby Lee MD mellitus with unspecified complications I10 Essential (primary) hypertension E78.5 Hyperlipidemia, unspecified F33.0 Major depressive disorder, recurrent, mild F41.9 Anxiety disorder, unspecified G47.00 Insomnia, unspecified K21.0 Gastro-esophageal reflux disease with esophagitis M25.519 Pain in unspecified shoulder M54.2 Cervicalgia M54.9 Dorsalgia, unspecified D35.2 Benign neoplasm of pituitary gland E55.9 Vitamin D deficiency, unspecified E66.01 Morbid (severe) obesity due to excess calories F17.219 Nicotine dependence, cigarettes, w unsp disorders K08.89 Other specified disorders of teeth and supporting structures Z68.41 Body mass index (BMI) 40.0-44.9, adult Office Visit 09/20/2017 [facility], E11.8 Type 2 diabetes 2:30p Ruby Lee MD mellitus with unspecified complications I10 Essential (primary) hypertension E78.5 Hyperlipidemia, unspecified F33.0 Major depressive disorder, recurrent, mild F41.9 Anxiety disorder, unspecified G47.00 Insomnia, unspecified K21.0 Gastro-esophageal reflux disease with esophagitis M25.519 Pain in unspecified shoulder M54.2 Cervicalgia M54.9 Dorsalgia, unspecified D35.2 Benign neoplasm of pituitary gland E55.9 Vitamin D deficiency, unspecified E66.01 Morbid (severe) obesity due to excess calories F17.219 Nicotine dependence, cigarettes, w unsp disorders Z68.41 Body mass index (BMI) 40.0-44.9, adult Office Visit 08/12/2017 [facility] [place], E11.8 Type 2 diabetes 1:00p Ruby Lee MD mellitus with unspecified complications I10 Essential (primary) hypertension E78.5 Hyperlipidemia, unspecified F33.0 Major depressive disorder, recurrent, mild F41.9 Anxiety disorder, unspecified G47.00 Insomnia, unspecified K21.0 Gastro-esophageal reflux disease with esophagitis M25.519 Pain in unspecified shoulder M54.2 Cervicalgia M54.9 Dorsalgia, unspecified D35.2 Benign neoplasm of pituitary gland E55.9 Vitamin D deficiency, unspecified F17.210 Nicotine dependence, cigarettes, uncomplicated E66.9 Obesity, unspecified Z68.38 Body mass index (BMI) 38.0-38.9, adult Office Visit 07/01/2017 10:00a [facility] Alyce Capellan Z00.00 Encntr for Ruby Lee MD general adult medical exam w/o abnormal findings E11.8 Type 2 diabetes mellitus with unspecified complications I10 Essential (primary) hypertension E78.5 Hyperlipidemia, unspecified F33.0 Major depressive disorder, recurrent, mild F41.9 Anxiety disorder, unspecified G47.00 Insomnia, unspecified K21.0 Gastro-esophageal reflux disease with esophagitis M54.2 Cervicalgia M54.9 Dorsalgia, unspecified D35.2 Benign neoplasm of pituitary gland E55.9 Vitamin D deficiency, unspecified F17.210 Nicotine dependence, cigarettes, uncomplicated E66.9 Obesity, unspecified Z68.35 Body mass index (BMI) 35.0-35.9, adult Office Visit 03/18/2017 2:15p [facility] Alyce Capellan F33.0 Major depressive Ruby Lee MD disorder, recurrent, mild K21.0 Gastro-esophageal reflux disease with esophagitis F41.9 Anxiety disorder, unspecified D35.2 Benign neoplasm of pituitary gland E78.5 Hyperlipidemia, unspecified G47.00 Insomnia, unspecified M54.2 Cervicalgia E55.9 Vitamin D deficiency, unspecified Office Visit 01/14/2017 9:30a [facility] Alyce Capellan M79.672 Pain in Ruby Lee MD LEFT foot G47.00 Insomnia, unspecified E78.5 Hyperlipidemia, unspecified K21.0 Gastro-esophageal reflux disease with esophagitis E11.8 Type 2 diabetes mellitus with unspecified complications F41.1 Generalized anxiety disorder Office Visit 11/12/2016 3:45p [facility] [place], E23.7 Disorder of Ruby Lee MD pituitary gland, unspecified F33.0 Major depressive disorder, recurrent, mild F41.1 Generalized anxiety disorder R45.4 Irritability and anger E11.8 Type 2 diabetes mellitus with unspecified complications K21.0 Gastro-esophageal reflux disease with esophagitis I10 Essential (primary) hypertension E78.5 Hyperlipidemia, unspecified G62.9 Polyneuropathy, unspecified M79.641 Pain in RIGHT hand E55.9 Vitamin D deficiency, unspecified D51.9 Vitamin B12 deficiency anemia, unspecified Office Visit 10/12/2016 1:00p [facility] [place], E23.7 Disorder of Ruby Lee MD pituitary gland, unspecified F33.0 Major depressive disorder, recurrent, mild F41.1 Generalized anxiety disorder R45.4 Irritability and anger E11.8 Type 2 diabetes mellitus with unspecified complications K21.0 Gastro-esophageal reflux disease with esophagitis I10 Essential (primary) hypertension E78.5 Hyperlipidemia, unspecified G62.9 Polyneuropathy, unspecified M54.9 Dorsalgia, unspecified Office Visit 09/14/2016 [facility] [place], E11.8 Type 2 diabetes 1:00p Ruby Lee MD mellitus with unspecified complications F17.200 Nicotine dependence, unspecified, uncomplicated K21.0 Gastro-esophageal reflux disease with esophagitis I10 Essential (primary) hypertension E78.5 Hyperlipidemia, unspecified F33.0 Major depressive disorder, recurrent, mild F41.1 Generalized anxiety disorder Office Visit 09/06/2016 [facility] [place], E11.8 Type 2 diabetes 1:15p Ruby Lee MD mellitus with unspecified complications F17.200 Nicotine dependence, unspecified, uncomplicated K21.0 Gastro-esophageal reflux disease with esophagitis I10 Essential (primary) hypertension E78.5 Hyperlipidemia, unspecified G62.9 Polyneuropathy, unspecified E55.9 Vitamin D deficiency, unspecified F33.0 Major depressive disorder, recurrent, mild Office Visit 06/14/2016 [facility] [place], E11.8 Type 2 diabetes 3:00p Ruby Lee MD mellitus with unspecified complications E55.9 Vitamin D deficiency, unspecified F17.200 Nicotine dependence, unspecified, uncomplicated K21.0 Gastro-esophageal reflux disease with esophagitis I10 Essential (primary) hypertension E78.5 Hyperlipidemia, unspecified G62.9 Polyneuropathy, unspecified Office Visit 01/12/2016 [facility] [place], E11.8 Type 2 diabetes 11:30a Ruby Lee MD mellitus with unspecified complications E55.9 Vitamin D deficiency, unspecified F17.200 Nicotine dependence, unspecified, uncomplicated K21.0 Gastro-esophageal reflux disease with esophagitis I10 Essential (primary) hypertension E78.5 Hyperlipidemia, unspecified Office Visit 11/17/2015 [facility] [place], E11.8 Type 2 diabetes 11:15a Ruby Lee MD mellitus with unspecified complications E55.9 Vitamin D deficiency, unspecified F17.200 Nicotine dependence, unspecified, uncomplicated K21.0 Gastro-esophageal reflux disease with esophagitis I10 Essential (primary) hypertension Office Visit 10/17/2015 [facility] [place], E78.5 Hyperlipidemia, 1:45p Ruby Lee MD unspecified F17.200 Nicotine dependence, unspecified, uncomplicated E55.9 Vitamin D deficiency, unspecified K21.0 Gastro-esophageal reflux disease with esophagitis Z00.00 Encntr for general adult medical exam w/o abnormal findings R73.01 Impaired fasting glucose D51.9 Vitamin B12 deficiency anemia, unspecified Z23 Encounter for immunization Office Visit 08/26/2015 9:40a [facility] Lana Lewis, J01.90 Acute sinusitis, Associates TOOL LIAISON unspecified R05 Cough R06.2 Wheezing Office Visit 04/27/2015 11:30a [facility] [place], M75.80 Other shoulder Associates Alyce Lee MD lesions, unspecified shoulder M54.9 Dorsalgia, unspecified M54.2 Cervicalgia Z79.899 Other fdc (current) drug therapy Office Visit 04/27/2015 11:15a [facility] Alyce Capellan I10 Essential Ruby Lee MD (primary) hypertension E78.5 Hyperlipidemia, unspecified F17.200 Nicotine dependence, unspecified, uncomplicated E55.9 Vitamin D deficiency, unspecified K21.0 Gastro-esophageal reflux disease with esophagitis Office Visit 09/03/2014 2:15p Alyce Coffman 726.19 Shoulder Ruby Lee MD Disorders Other Spec 724.5 Backache Unspec 723.1 Cervicalgia V58.69 Medications Shelter (Current) Use Encounter Office Visit 03/31/2014 3:30p Alyce Coffman 723.1 Cervicalgia Ruby Lee MD 724.5 Backache Unspec 719.48 Pain Joint Other Spec Sites Office Visit 03/31/2014 3:15p [place] Jadiel Capellan, 401.1 Hypertension Ruby Lee MD Benign 272.4 Hyperlipidemia Other Unspec 305.1 Tobacco Use Disorder 257.8 Testicular Dysfunction Other 530.11 Esophagitis Reflux 268.9 Vitamin D Deficiency Unspec Office Visit 01/26/2014 5:15p Alyce Coffman 723.1 Cervicalgia Ruby Lee MD 723.9 Cervical Region Musculoskeletal Disorders & Symptoms Unspec 724.5 Backache Unspec 719.48 Pain Joint Other Spec Sites Office Visit 01/26/2014 5:00p Ba Capellan, 401.1 Hypertension Ruby Lee MD Benign 272.4 Hyperlipidemia Other Unspec 305.1 Tobacco Use Disorder 257.8 Testicular Dysfunction Other 780.79 Malaise And Fatigue Other V58.69 Medications Shelter (Current) Use Encounter Office Visit 11/25/2013 2:30p Alyce Coffman 723.1 Cervicalgia uRby Lee MD 723.9 Cervical Region Musculoskeletal Disorders & Symptoms Unspec 724.5 Backache Unspec Office Visit 11/25/2013 2:15p Ba Capellan, 401.1 Hypertension Ruby Lee MD Benign 272.4 Hyperlipidemia Other Unspec V70.0 Exam (Adult) General Medical Routine AT Health Care Facility 305.1 Tobacco Use Disorder 257.8 Testicular Dysfunction Other 268.9 Vitamin D Deficiency Unspec Office Visit 10/20/2013 11:00a Ba Capellan, 401.1 Hypertension Ruby Lee MD Benign 272.4 Hyperlipidemia Other Unspec 530.11 Esophagitis Reflux 780.79 Malaise And Fatigue Other 305.1 Tobacco Use Disorder 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 (Current) Use Encounter Office Visit 09/09/2013 3:30p [facility] [place], 401.1 Hypertension Associates Alyce Lee MD Benign 272.4 Hyperlipidemia Other Unspec 530.11 Esophagitis Reflux 780.79 Malaise And Fatigue Other 305.1 Tobacco Use Disorder 719.48 Pain Joint Other Spec Sites 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 (Current) Use Encounter 268.9 Vitamin D Deficiency Unspec Office Visit 05/04/2013 1:30p [facility] [place], 401.1 Hypertension Associates Alyce Lee MD Benign 272.4 Hyperlipidemia Other Unspec 530.11 Esophagitis Reflux 780.79 Malaise And Fatigue Other 305.1 Tobacco Use Disorder 719.48 Pain Joint Other Spec Sites 726.19 Shoulder Disorders Other Spec Office Visit 04/08/2013 [facility] [place], 723.9 Cervical Region 10:00a Ruby Lee MD Musculoskeletal Disorders & Symptoms Unspec 723.1 Cervicalgia 724.5 Backache Unspec 719.48 Pain Joint Other Spec Sites Office Visit 12/29/2012 [facility] [place], 401.1 Hypertension 2:30p Ruby Moore NP Benign 272.4 Hyperlipidemia Other Unspec 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 (Current) Use Encounter 724.5 Backache Unspec 723.1 Cervicalgia Office Visit 10/15/2012 [facility] [place], 401.1 Hypertension 2:00p Ruby Moore NP Benign 272.4 Hyperlipidemia Other Unspec V58.69 Medications Shelter (Current) Use Encounter 724.5 Backache Unspec 789.9 Abdomen & Pelvis Symptoms Other Office Visit 08/06/2012 [facility] [place], 272.4 Hyperlipidemia Other 3:15p Ruby Lee MD Unspec 281.1 Vitamin B12 Deficiency Anemia Other 723.1 Cervicalgia 723.9 Cervical Region Musculoskeletal Disorders & Symptoms Unspec 724.5 Backache Unspec 719.48 Pain Joint Other Spec Sites Office Visit 08/06/2012 [facility] [place], 272.4 Hyperlipidemia Other 3:00p Ruby Lee MD Unspec 401.1 Hypertension Benign 272.4 Hyperlipidemia Other Unspec V58.69 Medications Shelter (Current) Use Encounter 530.11 Esophagitis Reflux 268.9 Vitamin D Deficiency Unspec 780.79 Malaise And Fatigue Other 305.1 Tobacco Use Disorder Office Visit 05/06/2012 3:45p [facility] [place], V58.69 Medications [facility] Alyce Lee MD Term (Current) Use Encounter 272.4 Hyperlipidemia Other Unspec 530.11 Esophagitis Reflux 268.9 Vitamin D Deficiency Unspec 780.79 Malaise And Fatigue Other Office Visit 05/06/2012 3:15p [facility] Alyce Capellan 723.1 Cervicalgia Ruby Lee MD 723.9 Cervical Region Musculoskeletal Disorders & Symptoms Unspec 719.48 Pain Joint Other Spec Sites 724.5 Backache Unspec Office Visit 03/24/[address] 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 (Current) Use Encounter 780.79 Malaise And Fatigue Other Office Visit 12/04/2011 5:20p [facility] Alyce Capellan 723.1 Cervicalharoon Lee MD 719.48 Pain Joint Other Spec Sites 723.9 Cervical Region Musculoskeletal Disorders & Symptoms Unspec 724.5 Backache Unspec 719.48 Pain Joint Other Spec Sites 723.1 Cervicalgia 724.5 Backache Unspec 723.9 Cervical Region Musculoskeletal Disorders & Symptoms Unspec Plan of Treatment Future Appointment(s):03/27/2019 11:15 am - Alyce Capellan MD at [facility]02/13/2019 - Alyce Capellan MDE11.40 Type 2 diabetes mellitus with diabetic neuropathy, unspComments:His recent A1c is elevated at 8.5. It is a medical necessity that patient will need Alonso blood glucose meter as he required to check his blood sugar levels 4 to 5 times a day. The patient was advised to continue with his other current medication regimen. He will benefit from maintaining a diabeticdiet and a regular exercise regimen. We will continue to monitor.I10 Essential (primary) hypertensionComments:Today, his BP is stable at 126/70. We will increase his lisinopril to 10 mg. He will benefit from maintaining a low sodium diet. We will continue to monitor.E78.5 Hyperlipidemia, unspecifiedComments:He will continue with his current regimen. He was encouraged to maintain a low cholesterol diet fe regular exercise regimen. We will continue to monitor.F33.0 Major depressive disorder, recurrent , mildComments:Condition reviewed in detail. Advised to continue taking his sertraline as directed. We will continue to monitor.F41.1 Generalized anxiety disorderComments:The patient is relatively doing well on current regimen without any adverse effects, will continue the same. We will continue to monitor.G47.00 Insomnia, unspecifiedComments:Patient is having difficulty sleeping and having morning fatigue, so we will schedule the patient for sleep study evaluation at Dr. López's office.K21.9 Gastro-esophageal reflux disease without esophagitisComments:For his heartburn patient was on pantoprazole with minimum benefit, so we will schedule the patient to see Dr. Medina for further evaluation. We will continue to monitor.M54.9 Dorsalgia, unspecifiedComments: He has some good and bad days. The patient is following with pain clinic. We will continue to monitor.M54.2 CervicalgiaComments:Will continue to monitor and will use OTC medication for pain control.D35.2 Benign neoplasm of pituitary glandComments:Stable at present, will continue to monitor.F17.218 Nicotine dependence, cigarettes, w oth disordersComments:Greater than 5 minutes spent on discussion regarding smoking cessation. All strategies regarding smoking cessation were discussed with the patient today. The patient understands the underlying risks associated with smoking tobacco. The patient states that he is to think about it and when he is ready to quit he would let us know.E55.9 Vitamin D deficiency, unspecifiedComments:Will continue with current supplements. We will need to check his bloodwork periodically.E66.01 Morbid ( severe) obesity due to excess caloriesComments:The patient had lost around 3lbs of body weight since the previous visit and he currently weighs around 276lbs. A detailed discussion was had with the patient regarding his body weight and BMI. He was made aware about the health hazards of obesity including diabetes, hypertension, cardiac diseases, and other various risk factors. He was advised to maintain a healthy and low-calorie diet and a regular exercise regimen which will help him lose weight. Greater than 10 minutes spent on counseling.Z68.41 Body mass index (BMI) 40.0-44.9, adultComments:His BMI is at 43.2. He was strongly encouraged to lose weight with low-calorie diet and exercises as much as he can. We will continue to monitor his weight and BMI periodically.AllNew Medication:Mupirocin 2 % - apply to affected area twice a dayAmmonium Lactate 12 % - apply topically 1 to 2 times a day to the affected area(s) for 2 weeksFollow up:The patient will follow-up with me in six weeks for reevaluation.
== END 2019-04-16 18:38 | disposition left against medical advice (07) ==
LOC: UCCORT 17:52
DX: R05 Cough (principal); H92.03 Otalgia, bilateral; R51 Headache; Z53.21 Procedure and treatment not carried out due to patient leaving prior to being seen by health care provider